=== PATIENT | female | born 1985 | race African-American/Black ===

== ENCOUNTER 2017-03-21 13:28 | Inpatient (IN) | payer OTHER ==
[~2017-03-21] VITALS: Ht 175.3 cm; Wt 115.2 kg
[~2017-03-21 13:28] MED LIST: ACET-9533 PO; ALBU0.0939 IH; ATI.5 PO; Ascorbic Acid GT; DULCOLAX PO; ELA25 PO; FERR-193 PO; GABA100C PO; SILD20TA PO; TOR30I IVP; ZOLP5TAB1 PO
[2017-03-21 13:35] VITALS: BP 109/78
--- NOTE | 2017-03-21 13:40 | NUR ---
PATIENT PRESENTS TO ED WITH 31 YO FEMALE BIB EMS FROM HOME FOR NAUSEA AND VOMITING AND DIZZINESS FOR THREE DAYS. AWAKE AND ALERT ON ARRIVAL. DENIES N/V/D; SKIN IS PINK/WARM/DRY; AAOX4 WITH EVEN AND STEADY GAIT; LUNGS CLEAR BL; HR EVEN AND REGULAR; PT DENIES ANY FEVER, CP, SOB, OR COUGH AT THIS TIME; PATIENT STATES PAIN OF 6/10 AT THIS TIME; VSS; PATIENT POSITIONED FOR COMFORT; HOB ELEVATED; BEDRAILS UP X2; BED DOWN. ER MD MADE AWARE OF PT STATUS.
[2017-03-21] MEDS ORDERED: ONDANSETRON 4 MG/2 ML VIAL IVP ONE (13:50)
[2017-03-21] MEDS ORDERED: KETOROLAC 30 MG/ML VIAL IVP ONE (13:50)
[2017-03-21] MEDS ORDERED: NACL 0.9% 1,000 ML IV ONE (13:50)
--- NOTE | 2017-03-21 14:22 | NUR ---
Patient transferred to bed 6 for further care. RN evaluating patient at bedside.
[2017-03-21 14:58] LABS: EOSINOPHILS # (AUTO) 0.1 K/uL (0-0.4)
[2017-03-21 15:18] LABS: MEAN CORPUSCULAR HEMOGLOBIN 25 pg (27-31); MEAN CORPUSCULAR HGB CONC 31 g/dL (33-37)
[2017-03-21 15:28] LABS: ALBUMIN 4.4 g/dL (3.4-5.0); ANION GAP 26.3 (8-16); CARBON DIOXIDE 18.2 mmol/L (21-32); CREATININE 1.6 mg/dL (0.6-1.3); POTASSIUM 4.5 mmol/L (3.5-5.1); THYROID STIMULATING HORMONE 0.3 uIU/mL (0.34-3.74); TOTAL BILIRUBIN 0.6 mg/dL (0.0-1.0)
[2017-03-21] MEDS ORDERED: INSULIN HUMAN REGULAR 100 UNITS/ML 10 ML VIAL IVP ONE (15:35)
[2017-03-21] MEDS ORDERED: INSULIN HUMAN REGULAR 100 UNITS in NACL 0.9% 100 ML IV ONE (15:40)
[2017-03-21 15:41] LABS: HEMATOCRIT 56.3 % (36-48); HEMOGLOBIN 17.2 g/dL (12.0-16.0); LYMPHOCYTES % (AUTO) 20.5 % (20.5-51.1); MEAN CORPUSCULAR VOLUME 81 fL (80-94); NEUTROPHILS % (AUTO) 73.6 % (42.2-75.2); PLATELET COUNT (AUTO) 234 K/uL (140-450); RED BLOOD CELL COUNT(AUTO) 6.99 MIL/uL (4.20-5.40); RED CELL DISTRIBUTION WIDTH 13.6 % (11.6-13.7); WHITE BLOOD COUNT (AUTO) 12.2 K/uL (4.8-10.8)
[2017-03-21 15:42] LABS: BASOPHILS # (AUTO) 0.2 K/uL (0.00-0.22); BASOPHILS % (AUTO) 1.6 % (0.0-2.0); EOSINOPHILS % (AUTO) 1.1 % (0.0-4.0); LYMPHOCYTES # (AUTO) 2.5 K/uL (2.5-16.5); MONOCYTES # (AUTO) 0.4 K/uL (0.8-1.0); MONOCYTES % (AUTO) 3.2 % (1.7-9.3)
[2017-03-21 15:47] LABS: APPEARANCE,URINE HAZY (CLEAR); BILIRUBIN,URINE NEGATIVE (NEGATIVE); BLOOD, URINE 2+ (NEGATIVE); COLOR,URINE YELLOW (YELLOW); NITRITE, URINE POSITIVE (NEGATIVE); PH,URINE 5.5 (5.0-9.0); UGLUCOSE 3+ (NEGATIVE)
[2017-03-21 16:08] LABS: RBC,URINE 3-10 (FEW) /HPF (0-5)
[2017-03-21] MEDS ORDERED: LEVOFLOXACIN 750 MG/D5W PREMIX 150 ML IV ONE (16:10)
[2017-03-21 16:11] LABS: LEUKOCYTE ESTERASE ,URINE 2+ (NEGATIVE); WBC,URINE 16-25 (MOD) /HPF (0-5)
[2017-03-21 16:18] LABS: YEAST,URINE Few /HPF (None Seen)
[2017-03-21] MEDS ORDERED: INSULIN HUMAN REGULAR 100 UNITS in NACL 0.9% 100 ML IV SCH (16:55)
[2017-03-21] MEDS: BLOOD GLUCOSE MONITORING 1 DEV DEV FS SCH ×8 (16:55→23:00)
[2017-03-21] MEDS ORDERED: DOCUSATE SODIUM 100 MG GELCAP PO PRN (16:55)
[2017-03-21] MEDS ORDERED: DEXTROSE 50% 50 ML SYR IVP PRN (16:55)
[2017-03-21] MEDS ORDERED: ACETAMINOPHEN 325 MG TAB PO PRN (16:55)
[2017-03-21] MEDS ORDERED: HYDROcodone/APAP 7.5/325 MG 1 TAB PO PRN (16:55)
[2017-03-21] MEDS ORDERED: ONDANSETRON 8 MG in NACL 0.9% 50 ML IV PRN (16:55)
[2017-03-21] MEDS ORDERED: MORPHINE SULFATE 4 MG/ML SYR IVP ONE (17:00)
[2017-03-21] MEDS ORDERED: LACTOBACILLUS RHAMNOSUS GG 1 EACH CAP PO SCH (17:00)
[2017-03-21] MEDS ORDERED: LORazepam 0.5 MG TAB PO PRN (17:35)
[2017-03-21] MEDS ORDERED: ALBUTEROL SULFATE/IPRATROPIU 3 ML SOL IH PRN (17:35)
[2017-03-21] MEDS ORDERED: KETOROLAC 30 MG/ML VIAL IVP PRN (17:35)
[2017-03-21] MEDS: INSULIN HUMAN REGULAR 100 UNITS in NACL 0.9% 100 ML IV SCH ×2 (17:38→18:17)
--- NOTE | 2017-03-21 17:45 | NUR ---
Patient will be admitted to care of DR. MERCEDES. Admited to ICU. Will go to BED 2. Report to SLICK ALMEIDA.
[2017-03-21] MEDS ORDERED: HYDROmorphone 1 MG/ML AMP IVP PRN (17:55)
[2017-03-21] MEDS ORDERED: LORazepam 2 MG/ML VIAL IVP PRN (17:55)
--- NOTE | 2017-03-21 18:00 | NUR ---
RECEIVED PT FROM ER. PT AMBULATORY WITH ASSISTANCE. PT IS AAOX4, HERE FOR DKA WITH INITIAL BG AT 794. PT HAS LEFT HAND 20G IV RUNNING IVF AND INSULIN DRIP. IV IS PATENT AND INTACT. PT ON ROOM AIR, SATTING AT 95%, ON COMPONENT OVERHAUL OPERATOR RUNNING 120 BPM. PT IS NPO AT THIS TIME. SKIN IS WARM, DRY, INTACT. PT ABLE TO TURN SELF. MRSA SWAB DONE. SAFETY MEASURES CHECKED, CALL LIGHT LEFT AT BEDSIDE. WILL CONTINUE TO MONITOR.
--- NOTE | 2017-03-21 18:10 | NUR ---
BG 567. CALLED RESIDENT NUMBER; PER MD, KEEP INSULIN DRIP AT 5UNITS/HR. WILL FOLLOW UP WITH ORDERS.
[2017-03-21] MEDS: NACL 0.9% 1,000 ML IV SCH ×2 (18:22→23:50)
[2017-03-21 19:15] LABS: PROTHROMBIN TIME 10.6 secs (10.8-13.4)
[2017-03-21 19:16] LABS: BARBITURATE, URINE NEG. ng/ml (NEG <=200); BENZODIAZEPINE, URINE NEG. ng/mL (NEG <=200); CANNABINOID, URINE NEG. ng/mL (NEG <=50); COCAINE, URINE NEG. ng/mL (NEG <=300); OPIATE, URINE NEG. ng/mL (NEG <=2000); PHENCYCLIDINE SCREEN,URINE NEG. ng/mL (NEG <=25)
--- NOTE | 2017-03-21 19:30 | NUR ---
DR ALICEA AT BEDSIDE EXPLAINING CENTRAL LINE TO PATIENT. PT VERBALIZED UNDERSTANDING. INFORMED CONSENT SIGNED BY PT WITH AND JUAN PABLO MORGAN WITNESS.
[2017-03-21 19:31] LABS: CHOL/HDL RATIO 6.3 (1-4.5); MAGNESIUM 2.9 mg/dL (1.8-2.4); PHOSPHORUS 4.6 mg/dL (2.5-4.9); THYROID STIMULATING HORMONE 0.29 uIU/mL (0.34-3.74)
[2017-03-21 19:52] VITALS: BP 132/86
--- NOTE | 2017-03-21 20:00 | NUR ---
REPORT GIVEN TO JUAN PABLO HANEY.
--- NOTE | 2017-03-21 20:13 | NUR ---
ADMINISTERED ATIVAN AND DILAUDID PER MD ORDER BEFORE CENTRAL LINE INSERTION WITH EDUCATION. PT VERBALIZED UNDERSTANDING. WILL CONTINUE TO MONITOR.
--- NOTE | 2017-03-21 20:28 | NUR ---
RECEIVED CRITICAL RADIOLOGY.
--- NOTE | 2017-03-21 20:32 | NUR ---
NOTIFIED DR CORTEZ OF CRITICAL RADIOLOGY. PER , PLEASE DRAW NEXT VBG FROM CENTRAL LINE. WILL FOLLOW UP.
[2017-03-21] MEDS ORDERED: METOPROLOL 5 MG/5 ML VIAL IV ONE (20:45)
[2017-03-21] MEDS: AMITRIPTYLINE 25 MG TAB PO SCH (21:00)
[2017-03-21] MEDS: SILDENAFIL 20 MG TAB PO SCH (21:35)
[2017-03-21] MEDS ORDERED: FLUCONAZOLE 100 MG TAB PO SCH (21:40)
[2017-03-21 22:00] VITALS: BP 107/38
[2017-03-21] MEDS ORDERED: LIDOCAINE 1% 50 ML ONE (22:43)
--- NOTE | 2017-03-21 23:15 | NUR ---
DR. CORTEZ (RESIDENT) JUST FINISHED FIXING THE CENTRAL LINE, TRIED TO FLUSH 3 PORTS, ONLY THE BROWN PORT DOES NOT HAVE BLOOD RETURN, PER DR. CORTEZ , OK TO USE THE CENTRAL LINE ON J.
[2017-03-21] MEDS: MORPHINE SULFATE 2 MG/ML SYR IVP PRN (23:51)
[2017-03-21] MEDS: ZOLPIDEM 5 MG TAB PO SCH (23:51)
[2017-03-22] VITALS (8 sets, daily range): BP systolic 91–135; BP diastolic 53–90
[2017-03-22] MEDS ORDERED: LIDOCAINE 1% 500 MG/50 ML VIAL INJ SCH (00:30)
[2017-03-22] MEDS: BLOOD GLUCOSE MONITORING 1 DEV DEV FS SCH ×12 (00:55→20:45)
[2017-03-22 01:23] LABS: ANION GAP 5.4 (8-16); CARBON DIOXIDE 23.4 mmol/L (21-32); CREATININE 1.2 mg/dL (0.6-1.3)
[2017-03-22 01:27] LABS: MAGNESIUM 2.1 mg/dL (1.8-2.4); PHOSPHORUS 3.6 mg/dL (2.5-4.9); POTASSIUM 2.8 mmol/L (3.5-5.1)
[2017-03-22] MEDS ORDERED: KCL 20 MEQ/WATER INJ PREMIX 200 ML IV ONE ×2 (01:35→02:34)
[2017-03-22] MEDS ORDERED: KCL 20 MEQ/WATER INJ PREMIX 100 ML IV ONE (01:35)
--- NOTE | 2017-03-22 01:35 | NUR ---
DR. CORTEZ INFORMED ALSO THAT PATIENT'S HR IS STILL ON 125, BP 141/94. STATED THAT HE'S GOING TO PUT IN ORDERS.
--- NOTE | 2017-03-22 01:35 | NUR ---
DR. CORTEZ INFORMED ABOUT K+ LEVEL 2.8, NEW ORDERS GIVEN. INFORMED TRACTOR DRILL OPERATORJUAN PABLO RICE.
[2017-03-22] MEDS: MORPHINE SULFATE 2 MG/ML SYR IVP PRN ×2 (03:17→07:42)
[2017-03-22] MEDS: NACL 0.9% 1,000 ML IV SCH ×4 (05:12→20:46)
[2017-03-22 05:25] LABS: HEMATOCRIT 47.1 % (36-48); HEMOGLOBIN 14.9 g/dL (12.0-16.0); MEAN CORPUSCULAR HEMOGLOBIN 25 pg (27-31); MEAN CORPUSCULAR HGB CONC 32 g/dL (33-37); MEAN CORPUSCULAR VOLUME 81 fL (80-94); RED BLOOD CELL COUNT(AUTO) 5.85 MIL/uL (4.20-5.40); RED CELL DISTRIBUTION WIDTH 13.5 % (11.6-13.7); WHITE BLOOD COUNT (AUTO) 18.2 K/uL (4.8-10.8)
[2017-03-22 05:52] LABS: ANION GAP 15.1 (8-16); CARBON DIOXIDE 22.3 mmol/L (21-32); CREATININE 1.2 mg/dL (0.6-1.3); POTASSIUM 4.4 mmol/L (3.5-5.1)
[2017-03-22 05:53] LABS: MAGNESIUM 1.9 mg/dL (1.8-2.4); PHOSPHORUS 3.2 mg/dL (2.5-4.9)
[2017-03-22 06:07] LABS: PLATELET COUNT (AUTO) 127 K/uL (140-450)
[2017-03-22 06:09] LABS: EOSINOPHILS % (MANUAL) 2 % (0-4); LYMPHOCYTES % (MANUAL) 6 % (20-46); MONOCYTES % (MANUAL) 8 % (5-12)
--- NOTE | 2017-03-22 07:30 | NUR ---
RECEIVED REPORT FROM JUAN PABLO VEGA. PT SEEN AT BEDSIDE. AAOX4, ON BURNING SUPERVISOR, HR AT [address] LEFT IJ TLC IN PLACE; BLOOD RETURN ONLY IN ONE PORT. RUNNING IVF AND INSULIN DRIP. PT ON RM AIR, NO S/S SOB; PT C/O 10/10 GENERALIZED PAIN. SAFETY MEASURES CHECKED, CALL LIGHT LEFT AT BEDSIDE. ASSISTED PT WITH TURNING. WILL CONTINUE TO MONITOR.
--- NOTE | 2017-03-22 07:42 | NUR ---
PAIN MEDICATION ADMINISTERED FOR 10/10 GENERALIZED PAIN.
--- NOTE | 2017-03-22 08:00 | NUR ---
DR RICHARDS AND RESIDENTS AT BEDSIDE TALKING WITH PATIENT. UPDATED MD ON PATIENT CONDITION. WILL FOLLOW UP ON ORDERS.
[2017-03-22] MEDS ORDERED: INSULIN HUMAN REGULAR 100 UNITS in NACL 0.9% 100 ML IV SCH (08:20)
[2017-03-22] MEDS ORDERED: ONDANSETRON 8 MG in NACL 0.9% 50 ML IV PRN (08:20)
[2017-03-22] MEDS ORDERED: ACETAMINOPHEN 325 MG TAB PO PRN (08:20)
[2017-03-22] MEDS ORDERED: DEXTROSE 50% 50 ML SYR IVP PRN (08:20)
[2017-03-22 08:25] LABS: MAGNESIUM 1.6 mg/dL (1.8-2.4); PHOSPHORUS 2.4 mg/dL (2.5-4.9)
[2017-03-22 08:47] LABS: ANION GAP 15.4 (8-16); CARBON DIOXIDE 21.9 mmol/L (21-32); CREATININE 1.3 mg/dL (0.6-1.3); POTASSIUM 4.3 mmol/L (3.5-5.1)
[2017-03-22] MEDS: FERROUS SULFATE 325 MG TABEC PO SCH (08:58)
[2017-03-22] MEDS: ATORVASTATIN 20 MG TAB PO SCH (08:59)
[2017-03-22] MEDS: ASCORBIC ACID 500 MG TAB PO SCH (08:59)
[2017-03-22] MEDS: SILDENAFIL 20 MG TAB PO SCH ×2 (08:59→20:34)
[2017-03-22] MEDS: GABAPENTIN 100 MG CAP PO SCH ×3 (08:59→16:52)
[2017-03-22] MEDS ORDERED: LEVOFLOXACIN 750 MG/D5W PREMIX 150 ML IV SCH (09:00)
[2017-03-22] MEDS: DOCUSATE SODIUM 100 MG GELCAP PO SCH ×2 (09:01→20:34)
[2017-03-22] MEDS: LEVOFLOXACIN 750 MG/D5W PREMIX 150 ML IV SCH (09:02)
[2017-03-22] MEDS: INSULIN LISPRO SLIDING SCALE 100 UNITS/ML VIAL SUBQ PRN ×4 (09:19→20:44)
--- NOTE | 2017-03-22 09:30 | NUR ---
MEDICATIONS ADMINISTERED WITH EDUCATION. PT VERBALIZED UNDERSTANDING. WILL CONTINUE TO MONITOR.
--- NOTE | 2017-03-22 10:17 | NUR ---
INSULIN DRIP STOPPED PER MD ORDERS.
[2017-03-22] MEDS ORDERED: MAG SULF 2000 MG/WATER PREMIX 50 ML IV SCH (10:28)
[2017-03-22] MEDS ORDERED: SODIUM PHOS / POTASSIUM PHOS 1 PKT PDR PO SCH (10:28)
[2017-03-22] MEDS: HYDROcodone/APAP 10/325 MG 1 TAB TAB PO PRN ×2 (11:09→20:34)
--- NOTE | 2017-03-22 11:09 | NUR ---
PAIN MEDICATION ADMINISTERED FOR 10/10 GENERALIZED PAIN. WILL CONTINUE TO MONITOR.
[2017-03-22] MEDS ORDERED: PROPRANOLOL 20 MG TAB PO SCH (11:17)
--- NOTE | 2017-03-22 11:17 | NUR ---
PER DR LYONS OK TO HOLD 1117 INDERAL FOR BP 100/69.
[2017-03-22] MEDS ORDERED: BLOOD GLUCOSE MONITORING 1 DEV DEV FS SCH (11:30)
[2017-03-22] MEDS ORDERED: PROBIOTIC SCREEN 1 EA MISC MC PRN (12:50)
[2017-03-22] MEDS ORDERED: INSULIN DETEMIR 100 UNITS/ML 10 ML VIAL SUBQ SCH ×3 (13:00→21:00)
--- NOTE | 2017-03-22 13:00 | NUR ---
PT SLEEPING AT THIS TIME. WILL CONTINUE TO MONITOR.
[2017-03-22] MEDS: PROPRANOLOL 20 MG TAB PO SCH ×2 (13:34→16:22)
--- NOTE | 2017-03-22 15:10 | NUR ---
PT TALKING TO FRIEND ON PHONE. NO NEEDS AT THIS TIME. WILL CONTINUE TO MONITOR.
--- NOTE | 2017-03-22 15:13 | NUR ---
DR. KELLY AND MAURICE AT NURSING STATION. UPDATED MD ON PATIENT CONDITION. WILL FOLLOW UP WITH ORDERS.
[2017-03-22] MEDS: LACTOBACILLUS RHAMNOSUS GG 1 EACH CAP PO SCH (16:52)
--- NOTE | 2017-03-22 16:53 | NUR ---
ACCUCHECK DONE. BG 343. COVERED WITH ORDERED INSULIN. PT REFUSED NEURONTIN AND CULTURELLE AT THIS TIME. EXPLAINED RISKS ASSOCIATED WITH NOT TAKING MEDICATION. PT VERBALIZED UNDERSTANDING. WILL CONTINUE TO MONITOR.
--- NOTE | 2017-03-22 17:00 | NUR ---
PROVIDED DINNER TRAY TO PATIENT. ONLY ATE 25% OF MEAL.
--- NOTE | 2017-03-22 18:26 | NUR ---
RECEIVED REPORT FROM JUAN PABLO LONDONO.
--- NOTE | 2017-03-22 18:26 | NUR ---
REPORT GIVEN TO MIMA TORRES RN.
--- NOTE | 2017-03-22 18:35 | NUR ---
PUT PT ON LEADS WITH ON PORTABLE TRANSPORT MONITOR. PT BELONGINGS WITH PT ON BED. PT TRANSFERRED VIA BED TO [facility].
--- NOTE | 2017-03-22 19:10 | NUR ---
RECEIVED REPORT FROM AM NURSE. PT AOX4, ABLE TO MAKE NEEDS KNOWN. WITH RESPIRATIONS CLEAR AND UNLABORED. NO COMPLAINTS OF PAIN AT THIS TIME. WITH A LEFT IJ TRIPLE LUMEN, WITH THE MIDDLE LUMEN WITH NO BLOOD RETURN. WITH A LEFT HAND IV SL, PATENT AND INTACT. WITH SCDS IN PLACE. INITIAL ASSESSMENT DONE. RE-ORIENTED PATIENT TO THE UNIT, VERBALIZED UNDERSTANDING. SCD'S IN PLACE. WILL CONTINUE TO MONITOR. ALL NEEDS ATTENDED. CALL LIGHT WITHIN REACH. SAFETY CHECKS IN PLACE.
[2017-03-22] MEDS: AMITRIPTYLINE 25 MG TAB PO SCH (20:34)
[2017-03-22] MEDS: ZOLPIDEM 5 MG TAB PO SCH (20:34)
--- NOTE | 2017-03-22 20:46 | NUR ---
DUE MEDS GIVEN, WELL TOLERATED BY PATIENT. WILL CONTINUE TO MONITOR. ALL NEEDS ATTENDED. CALL LIGHT WITHIN REACH. SAFETY CHECKS IN PLACE.
--- NOTE | 2017-03-22 21:00 | NUR ---
REPOSITIONED PATIENT WITH AN ASSISTANCE OF THE MANUGRAPHER. WILL CONTINUE TO MONITOR FOR ANY CHANGES.
--- NOTE | 2017-03-22 22:30 | NUR ---
MADE ROUNDS. PATIENT ASLEEP. NO S/S OF DISTRESS. WILL CONTINUE TO MONITOR FOR ANY CHANGES.
[2017-03-23] VITALS: BP 96/53
--- NOTE | 2017-03-23 | NUR ---
VITAL SIGNS STABLE. NO S/S OF DISTRESS. NO COMPLAINTS OF PAIN. PT WANTED JUICE, EDUCATED TO THE PATIENT THAT SHE CANT HAVE ANY JUICE BECAUSE IT WILL CAUSE HER BLOOD SUGAR TO INCREASE, VERBALIZED UNDERSTANDING. WILL CONTINUE TO MONITOR. ALL NEEDS ATTENDED. CALL LIGHT WITHIN REACH. SAFETY CHECKS IN PLACE.
--- NOTE | 2017-03-23 03:00 | NUR ---
REPOSITIONED PATIENT WITH AN ASSIST WITH THE RECRUITING ASSISTANT. COMPLAINED OF PAIN BUT REFUSED PAIN MEDICATION. WILL CONTINUE TO MONITOR.
[2017-03-23 04:00] VITALS: BP 125/68
--- NOTE | 2017-03-23 04:00 | NUR ---
VITALS STABLE. NO S/S OF DISTRESS. NO COMPLAINTS OF PAIN. WILL CONTINUE TO MONITOR.
[2017-03-23] MEDS: NACL 0.9% 1,000 ML IV SCH ×2 (04:20→16:24)
[2017-03-23] MEDS: HYDROcodone/APAP 10/325 MG 1 TAB TAB PO PRN ×2 (04:59→20:23)
[2017-03-23] MEDS: INSULIN LISPRO SLIDING SCALE 100 UNITS/ML VIAL SUBQ PRN ×4 (06:27→20:30)
[2017-03-23] MEDS: BLOOD GLUCOSE MONITORING 1 DEV DEV FS SCH ×4 (06:37→20:32)
--- NOTE | 2017-03-23 07:17 | NUR ---
ENDORSED TO MORNING SHIFT FOR CONTINUITY OF CARE, IN STABLE CONDITION.
--- NOTE | 2017-03-23 07:19 | NUR ---
RECEIVED HANDOFF REPORT FROM PM RN. PATIENT A&OX4. PATIENT STATES 8/10 PAIN. WILL MEDICATE ORDERED. L IJ TRIPLE LUMEN PATENT AN INTACT. DRESSING WITH SCANT DRAINAGE. NO SIGNS AND SYMPTOMS OF ACUTE DISTRESS NOTED. CALL LIGHT WITHIN REACH. WILL CONTINUE TO MONITOR.
[2017-03-23 08:00] VITALS: BP 91/48
[2017-03-23] MEDS: LEVOFLOXACIN 750 MG/D5W PREMIX 150 ML IV SCH (08:42)
[2017-03-23] MEDS: DOCUSATE SODIUM 100 MG GELCAP PO SCH ×2 (08:42→20:24)
[2017-03-23] MEDS: PIOGLITAZONE 15 MG TAB PO SCH (08:42)
[2017-03-23] MEDS: LACTOBACILLUS RHAMNOSUS GG 1 EACH CAP PO SCH ×2 (08:43→16:07)
[2017-03-23] MEDS: ATORVASTATIN 20 MG TAB PO SCH (08:43)
[2017-03-23] MEDS: ASCORBIC ACID 500 MG TAB PO SCH (08:44)
[2017-03-23] MEDS: GABAPENTIN 100 MG CAP PO SCH ×3 (08:44→16:07)
[2017-03-23] MEDS: FERROUS SULFATE 325 MG TABEC PO SCH (08:44)
[2017-03-23] MEDS: SILDENAFIL 20 MG TAB PO SCH ×2 (08:55→20:24)
[2017-03-23] MEDS: PROPRANOLOL 20 MG TAB PO SCH ×2 (08:55→20:14)
[2017-03-23] MEDS ORDERED: PROPRANOLOL 20 MG TAB PO SCH (09:00)
[2017-03-23 09:06] LABS: HEMATOCRIT 43.9 % (36-48); HEMOGLOBIN 13.9 g/dL (12.0-16.0); MEAN CORPUSCULAR HEMOGLOBIN 25 pg (27-31); MEAN CORPUSCULAR HGB CONC 32 g/dL (33-37); MEAN CORPUSCULAR VOLUME 81 fL (80-94); PLATELET COUNT (AUTO) 155 K/uL (140-450); RED BLOOD CELL COUNT(AUTO) 5.45 MIL/uL (4.20-5.40); RED CELL DISTRIBUTION WIDTH 13.5 % (11.6-13.7); WHITE BLOOD COUNT (AUTO) 7.7 K/uL (4.8-10.8)
--- NOTE | 2017-03-23 09:08 | NUR ---
AM MEDS GIVEN QWITH EDUCATION. PATIENT VERBALIZED UNDERSTANDING. DR. RICHARDS AWARE OF LEFT IJ TRIPLE LUMEN LEAKING. LEFT HAND 24 GAUGE PATENT AND INTACT. DR. RICHARDS MADE AWARE PATIENT STATES PAIN. 02/19 AFTER NORCO GIVEN. CALL LIGHT WITHIN REACH. WILL CONTINUE TO MONITOR.
--- NOTE | 2017-03-23 09:15 | NUR ---
PATIENT HAS BEEN SCREENED AND CATEGORIZED HIGH NUTRITION RISK. PATIENT WILL BE SEEN WITHIN 1-2 DAYS OF ADMISSION. 03/22/17-03/23/[address]
[2017-03-23 09:20] LABS: ANION GAP 14.3 (8-16); CARBON DIOXIDE 22.7 mmol/L (21-32); CREATININE 1.3 mg/dL (0.6-1.3)
[2017-03-23 09:25] LABS: MAGNESIUM 1.8 mg/dL (1.8-2.4); PHOSPHORUS 2.1 mg/dL (2.5-4.9)
[2017-03-23 09:33] LABS: LYMPHOCYTES % (MANUAL) 36 % (20-46); MONOCYTES % (MANUAL) 10 % (5-12)
--- NOTE | 2017-03-23 10:08 | NUR ---
CM NOTE INITIAL REVIEW FAXED TO EN [phone] PARVIN JAS EXT [phone]
[2017-03-23 12:00] VITALS: BP 101/59
[2017-03-23] MEDS: INSULIN DETEMIR 100 UNITS/ML 10 ML VIAL SUBQ SCH (12:18)
--- NOTE | 2017-03-23 12:22 | NUR ---
PATIENT STATES 10/10 PAIN. PATIENT REFUSES GABAPENTIN AND NORCO AT THIS TIME. PATIENT STATES IT WONT HELP HER. AWARE.
--- NOTE | 2017-03-23 13:34 | NUR ---
03/23/17 RD INITIAL ASSESSMENT COMPLETED PLEASE REFER TO NUTRITION ASSESSMENT UNDER CARE ACTIVITY FOR ESTIMATED NUTRITIONAL NEEDS. 1. CONTINUE 60G CONSISTENT CARBOHYDRATE DIET 2. ENCOURAGE INCREASED PO INTAKE TO TOLERANCE 3. PROVIDE NUTRITION THERAPY EDUCATION NEEDED 4. RD TO FOLLOW-UP HIGH RISK, 2-[address]
--- NOTE | 2017-03-23 15:15 | NUR ---
PATIENT SLEEPING IN BED. NO SIGNS OR SYMPTOMS OF ACUTE DISTRESS NOTED. CALL LIGHT WITHIN REACH. WILL CONTINUE TO MONITOR.
[2017-03-23] MEDS ORDERED: ONDANSETRON 4 MG/2 ML VIAL IVP PRN (15:35)
[2017-03-23 16:00] VITALS: BP 103/51
--- NOTE | 2017-03-23 16:00 | NUR ---
PATIENT STATES NAUSEA. WILL MEDICATE ORDERED. NO SIGNS OR SYMPTOMS OF ACUTE DISTRESS NOTED. CALL LIGHT WITHIN REACH. WILL CONTINUE TO MONITOR.
--- NOTE | 2017-03-23 17:46 | NUR ---
R IJ DISCONTINUED TIP INTACT. NO S/S OF ACUTE DISTRESS. PRESSURE APPLIED TO SITE. WILL CONTINUE TO MONITOR.
--- NOTE | 2017-03-23 19:13 | NUR ---
ENDORSED PLAN OF CARE TO PM RN. PATIENT STABLE. SAFETY MEASURES ENSURED. CALL LIGHT WITHIN REACH.
--- NOTE | 2017-03-23 19:14 | NUR ---
RECEIVED REPORT FROM AM NURSE. PT IS AOX4, ABLE TO MAKE NEEDS KNOWN. STATES THAT HER PAIN IS 10/10, WILL MEDICATE ORDERED. NO S/S OF DISTRESS. WITH AN IV TO THE LEFT HAND, INTACT AND PATENT. SKIN IS INTACT. INITIAL ASSESSMENT DONE. REORIENTED PT TO THE UNIT, VERBALIZED UNDERSTANDING. WILL CONTINUE TO MONITOR. ALL NEEDS ATTENDED. CALL LIGHT WITHIN REACH. SAFETY CHECKS IN PLACE.
--- NOTE | 2017-03-23 19:45 | NUR ---
RT PUT AN OXYMIZER OF 4 L DUE TO DE-SATURATION AND SHORTNESS OF BREATH, WELL TOLERATED BY PT.
[2017-03-23 20:00] VITALS: BP 104/57
[2017-03-23] MEDS: ZOLPIDEM 5 MG TAB PO SCH (20:23)
[2017-03-23] MEDS: AMITRIPTYLINE 25 MG TAB PO SCH (20:24)
--- NOTE | 2017-03-23 20:45 | NUR ---
DUE MEDS GIVEN, WELL TOLERATED BY PATIENT. HELD THE PROPANOLOL DUE TO THE BLOOD PRESSURE BEING LOW. WILL CONTINUE TO MONITOR. ALL NEEDS ATTENDED. CALL LIGHT WITHIN REACH. SAFETY CHECKS IN PLACE.
--- NOTE | 2017-03-23 22:00 | NUR ---
RESTARTED AN IV TO THE RIGHT HAND 24 G, FLUSHED WITH NS, INTACT AND PATENT.
[2017-03-24] VITALS: BP 111/66
--- NOTE | 2017-03-24 | NUR ---
VITALS STABLE. NO S/S OF DISTRESS. NO COMPLAINTS OF PAIN. WILL CONTINUE TO MONITOR FOR ANY CHANGES.
--- NOTE | 2017-03-24 01:54 | NUR ---
MADE ROUNDS. PATIENT ASLEEP. NO S/S OF DISTRESS. CALL LIGHT WITHIN REACH. SAFETY CHECKS IN PLACE. WILL CONTINUE TO MONITOR FOR ANY CHANGES.
[2017-03-24 04:00] VITALS: BP 105/77
--- NOTE | 2017-03-24 04:00 | NUR ---
VITAL SIGNS STABLE. NO S/S OF DISTRESS. NO COMPLAINTS OF PAIN. WILL CONTINUE TO MONITOR FOR ANY CHANGES. CALL LIGHT WITHIN REACH.
[2017-03-24 06:32] LABS: HEMATOCRIT 43.2 % (36-48); HEMOGLOBIN 13.3 g/dL (12.0-16.0); MEAN CORPUSCULAR HEMOGLOBIN 25 pg (27-31); MEAN CORPUSCULAR HGB CONC 31 g/dL (33-37); MEAN CORPUSCULAR VOLUME 80 fL (80-94); PLATELET COUNT (AUTO) 139 K/uL (140-450); RED BLOOD CELL COUNT(AUTO) 5.38 MIL/uL (4.20-5.40); RED CELL DISTRIBUTION WIDTH 13.9 % (11.6-13.7); WHITE BLOOD COUNT (AUTO) 7.1 K/uL (4.8-10.8)
[2017-03-24] MEDS: BLOOD GLUCOSE MONITORING 1 DEV DEV FS SCH ×2 (06:39→11:34)
[2017-03-24 06:41] LABS: T4 (THYROXINE) 9.9 ug/dL (4.5-12.0)
[2017-03-24] MEDS: INSULIN LISPRO SLIDING SCALE 100 UNITS/ML VIAL SUBQ PRN ×2 (06:42→12:16)
[2017-03-24 07:00] LABS: ANION GAP 15.7 (8-16); CARBON DIOXIDE 22.9 mmol/L (21-32); CREATININE 1.1 mg/dL (0.6-1.3); POTASSIUM 3.6 mmol/L (3.5-5.1)
[2017-03-24 07:10] LABS: MAGNESIUM 1.5 mg/dL (1.8-2.4); PHOSPHORUS 3.1 mg/dL (2.5-4.9)
--- NOTE | 2017-03-24 07:11 | NUR ---
ENDORSED TO AM SHIFT FOR CONTINUITY OF CARE, IN STABLE CONDITION. NO S/S OF DISTRESS.
--- NOTE | 2017-03-24 07:13 | NUR ---
RECEIVED REPORT FROM NIGHT RN AT BEDSIDE. PT SLEEPING IN BED. AAOX4. NO S/S OF ACUTE DISTRESS. IV SITE PATENT AND INTACT. ON OXIMIZER 4L. PT DENIES SOB AT THIS TIME BUT REFUSES TO HAVE OXIMIZER OFF. PLAN OF CARE DISCUSSED WITH PT. PT VERBALIZED UNDERSTANDING. CALL LIGHT WITHIN REACH. SAFETY MEASURES ENSURED. WILL CONTINUE TO MONITOR.
[2017-03-24 07:52] VITALS: BP 105/56
[2017-03-24 08:00] LABS: EOSINOPHILS % (MANUAL) 2 % (0-4); LYMPHOCYTES % (MANUAL) 46 % (20-46); MONOCYTES % (MANUAL) 6 % (5-12)
[2017-03-24] MEDS: DOCUSATE SODIUM 100 MG GELCAP PO SCH (08:45)
[2017-03-24] MEDS: LACTOBACILLUS RHAMNOSUS GG 1 EACH CAP PO SCH (08:45)
[2017-03-24] MEDS: LEVOFLOXACIN 750 MG/D5W PREMIX 150 ML IV SCH (08:45)
[2017-03-24] MEDS: ATORVASTATIN 20 MG TAB PO SCH (08:46)
[2017-03-24] MEDS: ASCORBIC ACID 500 MG TAB PO SCH (08:46)
[2017-03-24] MEDS: FERROUS SULFATE 325 MG TABEC PO SCH (08:46)
[2017-03-24] MEDS: SILDENAFIL 20 MG TAB PO SCH (08:46)
[2017-03-24] MEDS: PIOGLITAZONE 15 MG TAB PO SCH (08:46)
[2017-03-24] MEDS: GABAPENTIN 100 MG CAP PO SCH ×2 (08:46→12:10)
--- NOTE | 2017-03-24 08:47 | NUR ---
CM NOTE CONCURRENT REVIEW FAXED TO EN [phone], PH [phone] CM JAS EXT [phone] DIABETIC TEACHING GIVEN BY PATIENT'S NURSE. PATIENT WILL FOLLOW UP WITH PCP.
--- NOTE | 2017-03-24 08:58 | NUR ---
AM MEDICATIONS GIVEN WITH EDUCATION. PT TOLERATED WELL. PT VERBALIZED UNDERSTANDING. WILL CONTINUE TO MONITOR.
[2017-03-24] MEDS: PROPRANOLOL 20 MG TAB PO SCH (09:00)
[2017-03-24] MEDS ORDERED: MORPHINE TAB ER 15 MG TABER PO SCH (09:00)
[2017-03-24] MEDS ORDERED: PIOG15TA13 PO (11:05)
[2017-03-24] MEDS ORDERED: INSU-1331 SQ (11:05)
[2017-03-24] MEDS ORDERED: GABA100C PO (11:05)
[2017-03-24] MEDS ORDERED: BLOO1KIT MC (11:11)
[2017-03-24] MEDS ORDERED: [UNRECOGNIZED DRUG - CODE] MC (11:11)
[2017-03-24] MEDS ORDERED: BLOO-571 MC (11:11)
[2017-03-24] MEDS ORDERED: MAG SULF 2000 MG/WATER PREMIX 50 ML IV SCH (11:13)
--- NOTE | 2017-03-24 11:46 | NUR ---
PT SLEEPING IN BED. NO S/S OF ACUTE DISTRESS. CALL LIGHT WITHIN REACH. SAFETY MEASURES ENSURED. WILL CONTINUE TO MONITOR.
[2017-03-24 12:00] VITALS: BP 115/52
[2017-03-24] MEDS: INSULIN DETEMIR 100 UNITS/ML 10 ML VIAL SUBQ SCH (12:15)
--- NOTE | 2017-03-24 12:46 | NUR ---
DIABETIC TEACHING PROVIDED TO PT AND HER FAMILY AT BEDSIDE. HANDOUT PROVIDED. PT VERBALIZED UNDERSTANDING.
--- NOTE | 2017-03-24 13:19 | NUR ---
CM NOTE RECEIVED FAX FROM [facility] STATING PATIENT ADMISSION APPROVED 03/21/17 PER DRG, NRD 03/28/17. REF# [id number].
[2017-03-24] MEDS ORDERED: LACT1.4C PO (13:42)
[2017-03-24] MEDS ORDERED: SULF-58 PO (13:42)
--- NOTE | 2017-03-24 15:12 | NUR ---
PT HAS HOME MEDICATIONS IN PHARMACY. PT TOLD TO WAIT WHILE RN WENT TO GET THEM FOR PT. PT VERBALIZED UNDERSTANDING. PT STATED SHE "WONT LEAVE WITHOUT MY MEDS". UPON RETURN WITH MEDS PT HAD LEFT WITH FAMILY. PT CALLED. UNABLE TO REACH PT. MEDICATIONS LEFT IN HOUSE SUPERVISORS ROOM.
--- NOTE | 2017-03-24 15:12 | NUR ---
PT CLEARED FOR DISCHARGE HOME. PT INSTRUCTIONS PROVIDED. PT VERBALIZED UNDERSTANDING. IV TAKEN OUT TIP INTACT. FORMS SIGNED AND IN CHART. NO S/S OF ACUTE DISTRESS. PT WHEELED TO FRONT LOBBY WITH FAMILY. PT REMAINS STABLE.
== END 2017-03-24 15:15 | disposition home or self-care (01) | DRG 420 ==
LOC: MED 13:28 → MIC 17:15 → MTU 03-22 18:40
PROVIDERS: ADMIT Family Medicine; ATTEND Family Medicine
PROC: 05HN33Z Insertion of Infusion Device into Left Internal Jugular Vein, Percutaneous Approach (ICD-10-PCS; principal; 2017-03-21)
DX: E13.10 Other specified diabetes mellitus with ketoacidosis without coma (principal); N17.0 Acute kidney failure with tubular necrosis; E43 Unspecified severe protein-calorie malnutrition; I27.2 Other secondary pulmonary hypertension; M32.9 Systemic lupus erythematosus, unspecified; E83.41 Hypermagnesemia; E83.52 Hypercalcemia; E87.1 Hypo-osmolality and hyponatremia; N39.0 Urinary tract infection, site not specified; E02 Subclinical iodine-deficiency hypothyroidism; Z88.1 Allergy status to other antibiotic agents; J45.909 Unspecified asthma, uncomplicated; F41.9 Anxiety disorder, unspecified; M06.9 Rheumatoid arthritis, unspecified; E66.9 Obesity, unspecified; Z68.37 Body mass index [BMI] 37.0-37.9, adult; E78.5 Hyperlipidemia, unspecified; Z83.3 Family history of diabetes mellitus; Z82.49 Family history of ischemic heart disease and other diseases of the circulatory system; Z84.89 Family history of other specified conditions; Z84.1 Family history of disorders of kidney and ureter
CPT/HCPCS: 36415; 36600; 71010; 80048; 80053; 80305; 81001; 82009; 82150; 82803; 82948; 83036; 83605; 83690; 83735; 83880; 84100; 84436; 84439; 84443; 84479; 85025; 85610; 85730; 87040; 87081; 87086; 87186; 93005; 93925; 93970; 94640; 96372; 96374; 96375; 99291; G0480; J1170; J1642; J1815; J1885; J1956; J2001; J2060; J2270; J2405; J3475; J3480; J7030; J7620; Q0092

== ENCOUNTER 2017-03-25 00:50 | Emergency (ER) | payer OTHER ==
[~2017-03-25] VITALS: Ht 175.3 cm; Wt 67.1 kg
[~2017-03-25 00:50] MED LIST changes: +BLOO-571 MC; +BLOO1KIT MC; +INSU-1331 SQ; +LACT1.4C PO; +PIOG15TA13 PO; +SULF-58 PO; +[UNRECOGNIZED DRUG - CODE] MC
--- NOTE | 2017-03-25 00:50 | NUR ---
Patient was BIBA at this time.
[2017-03-25 01:29] VITALS: BP 101/54
--- NOTE | 2017-03-25 01:33 | NUR ---
Patient was taken to bed 06 via wheelchair per RN.
[2017-03-25] MEDS ORDERED: predniSONE 20 MG TAB PO ONE (01:45)
[2017-03-25] MEDS ORDERED: NACL 0.9% 1,000 ML IV ONE (01:45)
--- NOTE | 2017-03-25 02:00 | NUR ---
BIBA, PATIENT PRESENTS TO ED WITH C/O BODY PAIN; BACK PAIN PT DENIES VOMITTING AND DIARRHEA. SKIN IS PINK/WARM/DRY; AAOX4 WITH EVEN AND STEADY GAIT; LUNGS CLEAR BL; HR EVEN AND REGULAR; PT DENIES ANY FEVER, CP, SOB, OR COUGH AT THIS TIME; PATIENT STATES PAIN OF 10/10 AT THIS TIME; VSS; PATIENT POSITIONED FOR COMFORT; HOB ELEVATED; BEDRAILS UP X2; BED DOWN. ER MD MADE AWARE OF PT STATUS.
[2017-03-25 02:03] LABS: HEMOGLOBIN 13.3 g/dL (12.0-16.0); MEAN CORPUSCULAR HEMOGLOBIN 25 pg (27-31); MEAN CORPUSCULAR HGB CONC 32 g/dL (33-37); MEAN CORPUSCULAR VOLUME 80 fL (80-94); PLATELET COUNT (AUTO) 148 K/uL (140-450); RED BLOOD CELL COUNT(AUTO) 5.25 MIL/uL (4.20-5.40); RED CELL DISTRIBUTION WIDTH 13.9 % (11.6-13.7); WHITE BLOOD COUNT (AUTO) 7.8 K/uL (4.8-10.8)
[2017-03-25] MEDS ORDERED: METOCLOPRAMIDE 10 MG/2 ML INJ VIAL IVP ONE (02:10)
[2017-03-25 02:19] LABS: EOSINOPHILS % (MANUAL) 1 % (0-4); LYMPHOCYTES % (MANUAL) 28 % (20-46); MONOCYTES % (MANUAL) 3 % (5-12)
[2017-03-25] MEDS ORDERED: KETOROLAC 30 MG/ML VIAL IVP ONE (02:45)
[2017-03-25 02:49] LABS: ALBUMIN 2.8 g/dL (3.4-5.0); ANION GAP 14.7 (8-16); CARBON DIOXIDE 22.1 mmol/L (21-32); CREATININE 1.1 mg/dL (0.6-1.3); POTASSIUM 3.8 mmol/L (3.5-5.1); TOTAL BILIRUBIN 0.7 mg/dL (0.0-1.0)
[2017-03-25] MEDS ORDERED: INSULIN HUMAN REGULAR 100 UNITS/ML 10 ML VIAL IVP ONE (02:55)
[2017-03-25] MEDS ORDERED: HYDROmorphone 1 MG/ML AMP IVP ONE (02:55)
[2017-03-25 04:29] LABS: APPEARANCE,URINE TURBID (CLEAR); BILIRUBIN,URINE 1+ (NEGATIVE); BLOOD, URINE TRACE-L (NEGATIVE); COLOR,URINE YELLOW (YELLOW); LEUKOCYTE ESTERASE ,URINE TRACE (NEGATIVE); NITRITE, URINE NEGATIVE (NEGATIVE); UGLUCOSE 2+ (NEGATIVE)
[2017-03-25 04:47] LABS: RBC,URINE 0-5 (RARE) /HPF (0-5)
[2017-03-25 04:54] VITALS: BP 114/59
--- NOTE | 2017-03-25 04:54 | NUR ---
Patient discharged with v/s stable. Written and verbal after care instructions given and explained. Patient verbalized understanding. Ambulatory with steady gait. All questions addressed prior to discharge. Advised to follow up with PMD.
== END 2017-03-25 04:54 | disposition home or self-care (01) ==
LOC: MED 00:50
DX: E11.22 Type 2 diabetes mellitus with diabetic chronic kidney disease (principal); E11.65 Type 2 diabetes mellitus with hyperglycemia; I13.0 Hypertensive heart and chronic kidney disease with heart failure and stage 1 through stage 4 chronic kidney disease, or unspecified chronic kidney disease; N18.9 Chronic kidney disease, unspecified; I50.9 Heart failure, unspecified; M79.1 Myalgia; Z88.1 Allergy status to other antibiotic agents; J45.909 Unspecified asthma, uncomplicated
CPT/HCPCS: 36415; 80053; 81001; 81025; 82948; 83690; 84484; 85025; 87086; 93005; 96361; 96374; 96375; 99285; J1170; J1815; J1885; J2765; J7030; J7512

== ENCOUNTER 2017-04-01 18:35 | Inpatient (IN) | payer OTHER ==
[~2017-04-01] VITALS: Ht 175.3 cm; Wt 108.9 kg
[~2017-04-01 18:35] MED LIST changes: +ACT15 PO; -PIOG15TA13 PO
--- NOTE | 2017-04-01 18:35 | NUR ---
Patient JAXSONCameron MELISSA, triaged by RN. Waiting for an available bed.
[2017-04-01 18:39] VITALS: BP 140/69
--- NOTE | 2017-04-01 18:59 | NUR ---
Patient transferred to bed 7 for further care. RN evaluating patient at bedside.
--- NOTE | 2017-04-01 19:10 | NUR ---
31Y/F PT. BIBA TO ED WITH C/O ABDOMINAL PAIN X 5 DAYS. PT. WAS ADMITTED IN [place] WITH PANCREATITIS, TODAY HAVING ABDOMINAL PAIN WITH FEVER, CHILLS, N/V. HX. LUPUS. AAO X4, UNABLE TO AMBULATE AT THIS TIME. RESPIRATIONS ROOM AIR, EVEN AND UNLABORED. SKIN WARM AND DRY. C/O PAIN 10/10. VS, ELEVATED TEMP, TACHYCARDIA, ER MD MADE AWARE OF PT. STATUS.
[2017-04-01] MEDS ORDERED: NACL 0.9% 1,000 ML IV SCH (19:22)
[2017-04-01] MEDS ORDERED: MORPHINE SULFATE 4 MG/ML SYR IVP ONE ×2 (19:25→21:05)
[2017-04-01] MEDS ORDERED: ONDANSETRON 4 MG/2 ML VIAL IVP ONE (19:25)
[2017-04-01 19:37] LABS: APPEARANCE,URINE CLEAR (CLEAR); BILIRUBIN,URINE NEGATIVE (NEGATIVE); BLOOD, URINE TRACE-L (NEGATIVE); COLOR,URINE YELLOW (YELLOW); LEUKOCYTE ESTERASE ,URINE NEGATIVE (NEGATIVE); NITRITE, URINE NEGATIVE (NEGATIVE); UGLUCOSE NEGATIVE (NEGATIVE)
[2017-04-01 19:40] LABS: RBC,URINE 0-5 (RARE) /HPF (0-5); WBC,URINE 6-15 (FEW) /HPF (0-5)
[2017-04-01 19:53] LABS: HEMATOCRIT 41.8 % (36-48); HEMOGLOBIN 13.2 g/dL (12.0-16.0); MEAN CORPUSCULAR HEMOGLOBIN 26 pg (27-31); MEAN CORPUSCULAR HGB CONC 32 g/dL (33-37); MEAN CORPUSCULAR VOLUME 81 fL (80-94); PLATELET COUNT (AUTO) 264 K/uL (140-450); RED BLOOD CELL COUNT(AUTO) 5.19 MIL/uL (4.20-5.40); RED CELL DISTRIBUTION WIDTH 14.2 % (11.6-13.7); WHITE BLOOD COUNT (AUTO) 11.2 K/uL (4.8-10.8)
[2017-04-01 20:13] LABS: ANION GAP 19.1 (8-16); CARBON DIOXIDE 24.8 mmol/L (21-32); CREATININE 1.1 mg/dL (0.6-1.3); LYMPHOCYTES % (MANUAL) 6 % (20-46); MONOCYTES % (MANUAL) 3 % (5-12); TOTAL BILIRUBIN 0.6 mg/dL (0.0-1.0)
[2017-04-01 20:14] LABS: POTASSIUM 2.9 mmol/L (3.5-5.1)
[2017-04-01] MEDS ORDERED: ACETAMINOPHEN EXTRA STRENGTH 500 MG TAB ONE (20:14)
[2017-04-01] MEDS ORDERED: KCL 20 MEQ/WATER INJ PREMIX 200 ML IV ONE (20:20)
[2017-04-01] MEDS ORDERED: NACL 0.9% 1,000 ML IV ONE (20:50)
[2017-04-01] MEDS ORDERED: AZTREONAM 2,000 MG in DEXTROSE 5% 100 ML IV ONE (20:50)
--- NOTE | 2017-04-01 21:30 | NUR ---
O2 RA 88%, PLACE ON O2 2LPM VIA NC O2 SAT 99-100%. RYLEE GARCIA MADE AWARE.
[2017-04-01] MEDS ORDERED: AZTREONAM 1,000 MG VIAL ONE (21:45)
--- NOTE | 2017-04-01 22:00 | NUR ---
RECHECK TEMP 101.8, PT. REFUSES ICE PACKS. ER MADE AWARE. PT. UNABLE TO SWALLOW PILL. NEW ORDER RECIEVED.
[2017-04-01] MEDS ORDERED: HYDROcodone/APAP 7.5/325 MG 1 TAB PO PRN (22:05)
[2017-04-01] MEDS ORDERED: DOCUSATE SODIUM 100 MG GELCAP PO PRN (22:05)
[2017-04-01] MEDS ORDERED: ACETAMINOPHEN 650 MG SUPP RC ONE (22:10)
[2017-04-01] MEDS ORDERED: POTASSIUM CHLORIDE 10 MEQ TABER PO ONE (22:15)
[2017-04-01 22:26] LABS: PROTHROMBIN TIME 11.6 secs (10.8-13.4)
[2017-04-01 22:50] VITALS: BP 122/56
[2017-04-01] MEDS ORDERED: KETOROLAC 30 MG/ML VIAL IVP PRN ×3 (22:50→23:50)
--- NOTE | 2017-04-01 22:50 | NUR ---
Patient will be admitted to care of DR. SANFORD. Admited to TELEMETRY. Will go to [id number]. Belongings list completed. Report to JUAN PABLO AYALA.
--- NOTE | 2017-04-01 22:50 | NUR ---
Admitted from ER, with chief complaint of ABD PAIN, DX PANCREATITIS, SEPSIS 31 y/o, Female, GUARDED, AOX4, ABLE TO VERBALIZE NEEDS. PT C/O SEVERE ABD PAIN. SEE PAIN ASSESSMENT. WILL MEDICATE ORDERED. SPO2 100% AT O2 2L NC, RR 28. AUDIO VISUAL EQUIPMENT RENTAL CLERK IN PLACE. PT DENIES CHEST PAIN. PT C/O NAUSEA, WILL MEDICATE ORDERED. TEMP 102.2, ICE PACKS AND COOLING MEASURES ENSURED, WILL MEDICATE WITH TYLENOL PRN ORDERED. BOTH IV ACCESS TO LEFT FOREARM AND RIGHT FOREARM ASYMPTOMATIC PATENT AND INTACT. IVFs FROM ER INFUSING WELL. DISCUSSED AND REVIEWED PLAN OF CARE WITH PT. PT VERBALIZED UNDERSTANDING. oriented to call light, bed, phone,television, bathroom, smoking policy, visiting hours, procedures, ID bracelet on. Belongings list checked. ALL NEEDS MET. SAFETY MEASURES ENSURED. CALL LIGHT WITHIN REACH. WILL CONTINUE TO MONITOR.
[2017-04-01] MEDS: MORPHINE SULFATE 2 MG/ML SYR IVP PRN (23:10)
[2017-04-01] MEDS: NACL 0.9% 1,000 ML IV SCH (23:10)
--- NOTE | 2017-04-01 23:30 | NUR ---
DR GUTIERREZ AT BEDSIDE TO DISCUSS PLAN OF CARE WITH PT.
[2017-04-01] MEDS: ACETAMINOPHEN 325 MG TAB PO PRN (23:41)
[2017-04-01] MEDS: ONDANSETRON 4 MG/2 ML VIAL IM/IVP PRN (23:42)
[2017-04-01] MEDS: BLOOD GLUCOSE MONITORING 1 DEV DEV FS SCH (23:45)
[2017-04-01] MEDS ORDERED: LORazepam 0.5 MG TAB PO PRN (23:50)
[2017-04-01] MEDS ORDERED: BISACODYL 10 MG SUPP RC PRN (23:50)
--- NOTE | 2017-04-01 23:50 | NUR ---
BLOOD SUGAR 125, NO INSULIN COVERAGE NEEDED. PT C/O NAUSEA, ADMINISTERED ZOFRAN IV PRN ORDERED. PT TEMP 102.2, ADMINISTERED TYLENOL PO PRN ORDERED. WILL CONTINUE TO MONITOR TEMP.
[2017-04-02] VITALS (8 sets, daily range): BP systolic 86–133; BP diastolic 51–74
[2017-04-02 00:16] LABS: CHOL/HDL RATIO 3.7 (1-4.5); FREE T4 (FREE THYROXINE) 1.39 ng/dL (0.76-1.46); THYROID STIMULATING HORMONE 0.52 uIU/mL (0.34-3.74)
[2017-04-02 00:46] LABS: MAGNESIUM 0.9 mg/dL (1.8-2.4)
[2017-04-02 00:47] LABS: PHOSPHORUS 1.7 mg/dL (2.5-4.9)
[2017-04-02] MEDS ORDERED: MAG SULF 2000 MG/WATER PREMIX 50 ML IV ONE (01:10)
[2017-04-02] MEDS: MORPHINE SULFATE 2 MG/ML SYR IVP PRN ×3 (02:11→08:24)
--- NOTE | 2017-04-02 02:11 | NUR ---
PT C/O ABD PAIN. SEE PAIN ASSESSMENT. ADMINISTERED MORPHINE IVP PRN ORDERED WITH EDUCATION. ALL NEEDS MET. SAFETY MEASURES ENSURED. CALL LIGHT WITHIN REACH. WILL CONTINUE TO MONITOR.
[2017-04-02] MEDS: NACL 0.9% 1,000 ML IV SCH (03:05)
[2017-04-02] MEDS ORDERED: AZTREONAM 1,000 MG VIAL ONE (04:45)
[2017-04-02] MEDS ORDERED: metroNIDAZOLE 500 MG/NS PREMIX 100 ML IV SCH (05:00)
[2017-04-02] MEDS ORDERED: AZTREONAM 1,000 MG in DEXTROSE 5% 50 ML IV SCH (05:00)
[2017-04-02] MEDS: diphenhydrAMINE 50 MG/ML VIAL IVP PRN (05:11)
--- NOTE | 2017-04-02 05:11 | NUR ---
PT C/O ABD PAIN. SEE PAIN ASSESSMENT. ADMINISTERED MORPHINE IVP PRN ORDERED. PT C/O ITCHING ON BUE/BLE, NO RASHES NOTED. MADE MD AWARE. ADMINISTERED BENADRYL IVP PRN ORDERED. IVPB INFUSING WELL. ALL NEEDS MET. SAFETY MEASURES ENSURED. CALL LIGHT WITHIN REACH. WILL CONTINUE TO MONITOR.
[2017-04-02] MEDS: BLOOD GLUCOSE MONITORING 1 DEV DEV FS SCH ×4 (06:02→20:34)
[2017-04-02 06:46] LABS: BASOPHILS # (AUTO) 0.1 K/uL (0.00-0.22); BASOPHILS % (AUTO) 1.3 % (0.0-2.0); EOSINOPHILS # (AUTO) 0.1 K/uL (0-0.4); EOSINOPHILS % (AUTO) 0.9 % (0.0-4.0); HEMATOCRIT 35.7 % (36-48); HEMOGLOBIN 11.3 g/dL (12.0-16.0); LYMPHOCYTES # (AUTO) 1.7 K/uL (2.5-16.5); LYMPHOCYTES % (AUTO) 22.1 % (20.5-51.1); MEAN CORPUSCULAR HEMOGLOBIN 26 pg (27-31); MEAN CORPUSCULAR HGB CONC 32 g/dL (33-37); MEAN CORPUSCULAR VOLUME 81 fL (80-94); MONOCYTES # (AUTO) 0.3 K/uL (0.8-1.0); MONOCYTES % (AUTO) 4.6 % (1.7-9.3); NEUTROPHILS # (AUTO) 5.3 K/uL (1.8-7.7); NEUTROPHILS % (AUTO) 71.1 % (42.2-75.2); PLATELET COUNT (AUTO) 202 K/uL (140-450); RED BLOOD CELL COUNT(AUTO) 4.39 MIL/uL (4.20-5.40); RED CELL DISTRIBUTION WIDTH 14.2 % (11.6-13.7); WHITE BLOOD COUNT (AUTO) 7.5 K/uL (4.8-10.8)
--- NOTE | 2017-04-02 07:15 | NUR ---
ENDORSED PLAN OF CARE TO AM NURSE. CONDITION STABLE.
--- NOTE | 2017-04-02 07:16 | NUR ---
RECEIVED REPORT FROM NIGHT NURSE AT PT BEDSIDE. PT SLEEPING, EASILY AWAKENS, C/O BACK PAIN. IV SITE PATENT AND INTACT. ON O2 2L NC. NO S/S OF RESPIRATORY DISTRESS NOTED. DENIES CHEST PAIN. SCDS IN PLACE. CALL LIGHT WITHIN REACH. NPO STATUS.
[2017-04-02 07:23] LABS: CARBON DIOXIDE 25.2 mmol/L (21-32); CREATININE 0.8 mg/dL (0.6-1.3); POTASSIUM 3.2 mmol/L (3.5-5.1)
[2017-04-02 07:25] LABS: MAGNESIUM 1.8 mg/dL (1.8-2.4); PHOSPHORUS 3.5 mg/dL (2.5-4.9)
[2017-04-02] MEDS ORDERED: KETOROLAC 30 MG/ML VIAL IVP PRN (07:30)
[2017-04-02] MEDS: SILDENAFIL 20 MG TAB PO SCH ×2 (08:25→20:24)
[2017-04-02] MEDS: PIOGLITAZONE 15 MG TAB PO SCH (08:25)
[2017-04-02] MEDS: LISINOPRIL 5 MG TAB PO SCH (08:25)
[2017-04-02] MEDS: ATORVASTATIN 20 MG TAB PO SCH (08:25)
[2017-04-02] MEDS: predniSONE 10 MG TAB PO SCH (08:25)
[2017-04-02] MEDS: LACTOBACILLUS RHAMNOSUS GG 1 EACH CAP PO SCH (08:26)
[2017-04-02] MEDS: SODIUM PHOS / POTASSIUM PHOS 1 PKT PDR PO SCH ×2 (08:26→20:23)
[2017-04-02] MEDS: LEVOFLOXACIN 750 MG/D5W PREMIX 150 ML IV SCH (08:26)
[2017-04-02] MEDS: GABAPENTIN 100 MG CAP PO SCH ×3 (08:26→17:20)
--- NOTE | 2017-04-02 08:53 | NUR ---
PATIENT HAS BEEN SCREENED AND CATEGORIZED HIGH NUTRITION RISK. PATIENT WILL BE SEEN WITHIN 1-2 DAYS OF ADMISSION. 04/02/17-04/03/[address]
[2017-04-02] MEDS ORDERED: LACTOBACILLUS RHAMNOSUS GG 1 EACH CAP PO SCH (09:00)
[2017-04-02] MEDS ORDERED: PIOGLITAZONE 15 MG TAB PO SCH (09:00)
[2017-04-02] MEDS ORDERED: INSULIN DETEMIR 100 UNITS/ML 10 ML VIAL SUBQ SCH (09:05)
--- NOTE | 2017-04-02 09:18 | NUR ---
CM NOTE INITIAL REVIEW FAXED TO EN [phone] PARVIN JAS EXT [phone]
--- NOTE | 2017-04-02 09:20 | NUR ---
UNABLE TO OBTAIN ABG SAMPLE PUNCTURE SITE LEFT AND RIGHT BRACHIAL X1 EACH FAINT PULSES IV LOCATED RIGHT AND LEFT RADIAL REGION WILL PASS ON TO Syl RAMSAY RCP FOR ATTEMPT
[2017-04-02] MEDS ORDERED: POTASSIUM CHLORIDE 20% 40 MEQ/15 ML UDC PO SCH (09:30)
[2017-04-02] MEDS: DEXT 5% / NACL 0.45% 1,000 ML IV SCH ×4 (09:46→21:33)
[2017-04-02] MEDS: APIXABAN 2.5 MG TAB PO SCH ×2 (09:47→20:23)
[2017-04-02] MEDS: ONDANSETRON 4 MG/2 ML VIAL IM/IVP PRN ×3 (09:57→23:12)
[2017-04-02] MEDS: KETOROLAC 30 MG/ML VIAL IVP PRN ×3 (10:19→23:03)
--- NOTE | 2017-04-02 10:25 | NUR ---
PATIENT REFUSING ABG DRAW BY RT DUE TO PAIN. PATIENT C/O NAUSEA AND UNRESOLVED PAIN, MEDICATED WITH ZOFRAN IVP AND TORADOL IVP.
--- NOTE | 2017-04-02 11:45 | NUR ---
ABG PUNCTURE BY Syl RAMSAY, DIRECTOR OF STUDENT AFFAIRS SITE AT LEFT RADIAL NO ADVERSE REACTIONS NOTED
[2017-04-02] MEDS: INSULIN LISPRO SLIDING SCALE 100 UNITS/ML VIAL SUBQ PRN ×3 (11:47→21:32)
[2017-04-02] MEDS: HYDROmorphone 1 MG/ML AMP IVP PRN ×3 (11:51→18:30)
--- NOTE | 2017-04-02 14:30 | NUR ---
04/02/17 RD INITIAL ASSESSMENT COMPLETED PLEASE REFER TO NUTRITION ASSESSMENT UNDER CARE ACTIVITY FOR ESTIMATED NUTRITIONAL NEEDS. 1. CONTINUE NPO DIET 2. WHEN MEDICALLY FEASIBLE INITIATE CLEAR LIQUID DIET, ADVANCE TOLERATED TO LOW FAT DIET 3. RD TO FOLLOW UP WITHIN 2-3 DAYS; HIGH RISK AMY HOLDER, SHANI
--- NOTE | 2017-04-02 15:14 | NUR ---
COVERING DR. RICHARDS MADE AWARE OF SUSTAINED HR 140S. TO PLACE ORDERS.
[2017-04-02] MEDS ORDERED: METOPROLOL 5 MG/5 ML VIAL IV ONE (15:20)
[2017-04-02] MEDS ORDERED: METOPROLOL 25 MG TAB PO SCH (16:17)
--- NOTE | 2017-04-02 17:20 | NUR ---
COMPLETE BED BATH GIVEN TO PATIENT. PATIENT C/O PAIN, WILL MEDICATE ORDERED. IV STARTED ON RIGHT FOREARM #20. CT MADE AWARE, CONSENT SIGNED IN CHART.
--- NOTE | 2017-04-02 19:11 | NUR ---
ENDORSED PLAN OF CARE TO NIGHT RN LUCY AT PT BEDSIDE. NO S/S OF ACUTE DISTRESS NOTED.
--- NOTE | 2017-04-02 19:30 | NUR ---
RECEIVED REPORT FROM AM NURSE. PT RESTING IN BED, AOX4, ABLE TO VERBALIZE NEEDS. PT C/O ABD PAIN. BP LOW AT THIS TIME, WILL HOLD PAIN MEDS, WILL MONITOR PAIN, WILL NOTIFY MD. SPO2 96% AT O2 2L NC, RR [address]. CHEF INSTRUCTOR IN PLACE. PT DENIES CHEST PAIN. TEMP 99.7, ICE PACKS AND COOLING MEASURES ENSURED, WILL MONITOR TEMP. IV ACCESS TO LEFT FOREARM REMOVED, CANNULA INTACT, PT TOLERATED WELL. BOTH IV ACCESS TO DISTAL RIGHT FOREARM AND PROXIMAL RIGHT FOREARM ASYMPTOMATIC, PATENT AND INTACT. IVF INFUSING WELL. DISCUSSED AND REVIEWED PLAN OF CARE WITH PT. PT VERBALIZED UNDERSTANDING. oriented to call light, bed, phone,television, bathroom, smoking policy, visiting hours, procedures, ID bracelet on. Belongings list checked. ALL NEEDS MET. SAFETY MEASURES ENSURED. CALL LIGHT WITHIN REACH. WILL CONTINUE TO MONITOR.
--- NOTE | 2017-04-02 19:50 | NUR ---
MADE MD AWARE OF LOW BP, DR GUTIERREZ AT BEDSIDE TO EXAMINE PT AND DISCUSS PLAN OF CARE.
[2017-04-02] MEDS ORDERED: NACL 0.9% 500 ML IV ONE ×2 (20:00→21:40)
[2017-04-02] MEDS: AMITRIPTYLINE 25 MG TAB PO SCH (20:22)
--- NOTE | 2017-04-02 20:24 | NUR ---
ADMINISTERED 500ML NS BOLUS WIDE OPEN ORDERED, IVF INFUSING WELL. HELD SILDENAFIL DUE TO LOW BP. ADMINISTERED REMAINING DUE MEDS WITH EDUCATION. PT VERBALIZED UNDERSTANDING, TOLERATED MEDS WELL. ALL NEEDS MET. SAFETY MEASURES ENSURED. CALL LIGHT WITHIN REACH. WILL CONTINUE TO MONITOR.
--- NOTE | 2017-04-02 21:10 | NUR ---
BP RECHECKED, 86/57 AND 84/51; MADE DR GUTIERREZ AWARE, ORDERS PENDING, WILL CARRY OUT. ALSO MADE AWARE OF PT C/O ABD PAIN AT THIS TIME. MADE AWARE THAT TORADOL IVP PRN [id number] IS NOT DUE YET. NO CHANGE IN ORDERS RECEIVED FOR PAIN, STATED TO JUST WAIT AND MONITOR FOR NOW.
--- NOTE | 2017-04-02 21:33 | NUR ---
ASSISTED PT TO TURN AND REPOSITION SELF, OFFLOADED PRESSURE AREAS. PT C/O ABD PAIN, BUT ABLE TO TOLERATE. ADMINISTERED INSULIN COVERAGE WITH EDUCATION. IVF D5-1/2NS INFUSING WELL. WILL CONTINUE TO MONITOR.
--- NOTE | 2017-04-02 21:45 | NUR ---
BP RECHECKED, 102/56 AND 100/64; MADE DR GUTIERREZ AWARE. ALSO MADE AWARE OF PT C/O ABD PAIN AT THIS TIME, PT REQUESTING DILAUDID IVP. MADE AWARE, NO CHANGE IN ORDERS RECEIVED. STATED IT IS OK TO GIVE TORADOL IVP PRN AT THIS TIME, AND INSTRUCTED TO RECHECK BP IN ONE HOUR. WILL CARRY OUT.
--- NOTE | 2017-04-02 21:51 | NUR ---
ADMINISTERED 2ND BAG OF 500ML NS BOLUS WIDE OPEN ORDERED. BOTH IVF INFUSING WELL. ALL NEEDS MET. SAFETY MEASURES ENSURED. CALL LIGHT WITHIN REACH. WILL CONTINUE TO MONITOR.
--- NOTE | 2017-04-02 23:15 | NUR ---
PT C/O ABD PAIN. SEE PAIN ASSESSMENT. ADMINISTERED TORADOL IVP PRN ORDERED. PT C/O NAUSEA. ADMINISTERED ZOFRAN PRN IVP ORDERED. ALL NEEDS MET. SAFETY MEASURES ENSURED. CALL LIGHT WITHIN REACH. WILL CONTINUE TO MONITOR.
[2017-04-03] VITALS (7 sets, daily range): BP systolic 93–137; BP diastolic 20–78
[2017-04-03] MEDS: ACETAMINOPHEN 325 MG TAB PO PRN (00:28)
--- NOTE | 2017-04-03 00:28 | NUR ---
PT TEMP 100.7, ADMINISTERED TYLENOL PO PRN ORDERED WITH EDUCATION. PT VERBALIZED UNDERSTANDING, TOLERATED MED WELL. ALL NEEDS MET. SAFETY MEASURES ENSURED. CALL LIGHT WITHIN REACH. WILL CONTINUE TO MONITOR.
--- NOTE | 2017-04-03 01:05 | NUR ---
CALLED DR MO, COMPUTER APPLICATIONS INSTRUCTOR FOR DR GIBSON. DISCUSSED PT DX SBO, S/P EXP LAP WITH ABD DISHISSENCE AND RECENT S/P DEBRIDEMENT OF ABD WOUND WITH WOUND VAC SUCTION; MADE AWARE OF PT BP 163/104, 169/94, 163/97 AT THIS TIME. DISCUSSED THAT PT IS NOT ON TELE; ORDERS RECEIVED FOR HYDRALYZINE 25MG PO Q4H PRN FOR SBP > 150. ORDERS PENDING, WILL CARRY OUT. Addendum: 04/03/17 at 0118 by Gerald Iniguez RN DISREGARD; WRONG PATIENT
--- NOTE | 2017-04-03 01:18 | NUR ---
PT BACK FROM CT AT THIS TIME. Addendum: 04/03/17 at 0219 by Gerald Iniguez RN VS NOTED. TEMP 99.5, COOLING MEASURES MAINTAINED. SPO2 96% AT O2 2L NC, RR 22. BP 90/57, HR 117. PT SLEEPING AT THIS TIME, AROUSABLE TO NAME. ALL NEEDS MET. SAFETY MEASURES ENSURED. CALL LIGHT WITHIN REACH. WILL CONTINUE TO MONITOR.
[2017-04-03] MEDS ORDERED: ALBUTEROL SULFATE/IPRATROPIU 3 ML SOL IH PRN (02:40)
--- NOTE | 2017-04-03 02:40 | NUR ---
PT C/O SOB. VS TAKEN; BP 98/60, HR 117, SPO2 95% AT O2 2L NC, RR 24, TEMP 98.4; MADE DR GUTIERREZ AWARE OF PT C/O SOB AND VITAL SIGNS. DISCUSSED THAT PT HAS HX OF ASTHMA AND PULMONARY HTN. ALSO DISCUSSED THAT PT'S TEMP WAS 100.7, WAS GIVEN TYLENOL PRN ORDERED AND TEMP IS NOW 98.4 BUT HR IS STILL ELEVATED AT 117. ORDERS PENDING, WILL CARRY OUT.
--- NOTE | 2017-04-03 02:56 | NUR ---
NOTIFIED BY RT THAT PT IS CURRENTLY RECEIVING BREATHING TX AT THIS TIME.
[2017-04-03] MEDS: DEXT 5% / NACL 0.45% 1,000 ML IV SCH ×4 (03:00→12:14)
--- NOTE | 2017-04-03 04:25 | NUR ---
PT SLEEPING COMFORTABLY, AROUSABLE TO NAME. NO S/S OF ACUTE DISTRESS. SPO2 100% AT O2 2L NC, RR 20 UNLABORED. ALL NEEDS MET. IVF INFUSING WELL. SAFETY MEASURES ENSURED. CALL LIGHT WITHIN REACH. WILL CONTINUE TO MONITOR.
[2017-04-03] MEDS: diphenhydrAMINE 50 MG/ML VIAL IVP PRN (06:30)
[2017-04-03] MEDS: KETOROLAC 30 MG/ML VIAL IVP PRN ×3 (06:30→20:02)
[2017-04-03] MEDS: BLOOD GLUCOSE MONITORING 1 DEV DEV FS SCH ×4 (06:32→21:16)
--- NOTE | 2017-04-03 06:32 | NUR ---
VS CHECKED, 97/57, HR 115; TEMP 98.5, SPO2 97% AT O2 2L NC; RR 22 PT C/O ABD PAIN. SEE PAIN ASSESSMENT. ADMINISTERED TORADOL IVP PRN ORDERED. PT ITCHING. ADMINISTERED BENADRYL IVP PRN ORDERED. ALL NEEDS MET. IVF INFUSING WELL. SAFETY MEASURES ENSURED. CALL LIGHT WITHIN REACH. WILL CONTINUE TO MONITOR.
[2017-04-03 06:36] LABS: BASOPHILS # (AUTO) 0.3 K/uL (0.00-0.22); BASOPHILS % (AUTO) 4.3 % (0.0-2.0); EOSINOPHILS # (AUTO) 0.1 K/uL (0-0.4); HEMATOCRIT 35.7 % (36-48); HEMOGLOBIN 10.9 g/dL (12.0-16.0); LYMPHOCYTES # (AUTO) 1.1 K/uL (2.5-16.5); MEAN CORPUSCULAR HEMOGLOBIN 25 pg (27-31); MEAN CORPUSCULAR HGB CONC 31 g/dL (33-37); MEAN CORPUSCULAR VOLUME 82 fL (80-94); MONOCYTES # (AUTO) 0.6 K/uL (0.8-1.0); MONOCYTES % (AUTO) 7.3 % (1.7-9.3); NEUTROPHILS # (AUTO) 5.5 K/uL (1.8-7.7); NEUTROPHILS % (AUTO) 73.4 % (42.2-75.2); PLATELET COUNT (AUTO) 207 K/uL (140-450); RED BLOOD CELL COUNT(AUTO) 4.34 MIL/uL (4.20-5.40); RED CELL DISTRIBUTION WIDTH 14.4 % (11.6-13.7)
[2017-04-03 06:47] LABS: ANION GAP 12.2 (8-16); CARBON DIOXIDE 25.4 mmol/L (21-32); CREATININE 0.9 mg/dL (0.6-1.3); POTASSIUM 3.6 mmol/L (3.5-5.1)
[2017-04-03 06:51] LABS: MAGNESIUM 1.3 mg/dL (1.8-2.4); PHOSPHORUS 3.3 mg/dL (2.5-4.9)
--- NOTE | 2017-04-03 07:15 | NUR ---
ENDORSED PLAN OF CARE TO AM NURSE. CONDITION STABLE.
--- NOTE | 2017-04-03 07:15 | NUR ---
RECEIVED PATIENT REPORT AT BEDSIDE. PATIENT AWAKE AND ALERT. PATIENT ON 2L O2. NO SOB NOTED. IV LINE NOTED TO THE RIGHT FOREARM. PATIENT ON TELE MONITORING. BED LOWERED WITH CALL LIGHT WITHIN REACH. WILL CONTINUE TO MONITOR
[2017-04-03 07:30] LABS: WHITE BLOOD COUNT (AUTO) 7.6 K/uL (4.8-10.8)
[2017-04-03 08:10] LABS: AMYLASE 54 U/L (25-115); LIPASE 297 U/L (73-393)
--- NOTE | 2017-04-03 08:26 | NUR ---
CM NOTE CONCURRENT REVIEW FAXED TO EN [phone] PARVIN JAS EXT [id number]
[2017-04-03 08:34] LABS: T4 (THYROXINE) 9.5 ug/dL (4.5-12.0)
[2017-04-03] MEDS: LEVOFLOXACIN 750 MG/D5W PREMIX 150 ML IV SCH (08:34)
[2017-04-03] MEDS: SODIUM PHOS / POTASSIUM PHOS 1 PKT PDR PO SCH ×2 (08:38→20:55)
[2017-04-03] MEDS: PIOGLITAZONE 15 MG TAB PO SCH (08:38)
[2017-04-03] MEDS: SILDENAFIL 20 MG TAB PO SCH ×2 (08:39→21:00)
[2017-04-03] MEDS: ATORVASTATIN 20 MG TAB PO SCH (08:40)
[2017-04-03] MEDS: GABAPENTIN 100 MG CAP PO SCH ×3 (08:40→17:00)
[2017-04-03] MEDS: LACTOBACILLUS RHAMNOSUS GG 1 EACH CAP PO SCH (08:40)
[2017-04-03] MEDS: LISINOPRIL 5 MG TAB PO SCH (08:41)
[2017-04-03] MEDS: predniSONE 10 MG TAB PO SCH (08:42)
[2017-04-03] MEDS: APIXABAN 2.5 MG TAB PO SCH ×2 (08:44→20:53)
[2017-04-03] MEDS ORDERED: FUROSEMIDE 20 MG TAB PO SCH (09:00)
[2017-04-03] MEDS ORDERED: MAG SULF 2000 MG/WATER PREMIX 50 ML IV SCH (09:00)
[2017-04-03] MEDS: HYDROcodone/APAP 10/325 MG 1 TAB TAB PO PRN ×2 (09:12→22:38)
[2017-04-03] MEDS: ONDANSETRON 4 MG/2 ML VIAL IM/IVP PRN (09:51)
[2017-04-03] MEDS ORDERED: FUROSEMIDE 20 MG/2 ML VIAL IVP SCH (10:00)
--- NOTE | 2017-04-03 10:10 | NUR ---
PATIENT ASLEEP IN BED. NO S/S OF DISTRESS NOTED
[2017-04-03] MEDS: INSULIN LISPRO SLIDING SCALE 100 UNITS/ML VIAL SUBQ PRN ×2 (12:10→17:53)
--- NOTE | 2017-04-03 19:35 | NUR ---
PATIENT REPORT GIVEN AT BEDSIDE. PATIENT ENDORSED IN STABLE CONDITION
--- NOTE | 2017-04-03 19:36 | NUR ---
RECEIVED REPORT FROM DAY NURSE, PT IS AAOX4, PT IS ON 2L OF O2. PT HAS SALINE LOCK TO R FA 20 G AND PERIPHERAL IV TO R FA 24 G, PATENT AND INTACT. PTS SKIN IS INTACT. RESPIRATIONS ARE EVEN AND UNLABORED. BOWEL SOUNDS PRESENT IN ALL FOUR QUADRANTS. INITIAL PLAN OF CARE DISCUSSED WITH PT. PT VERBALIZED UNDERSTANDING. ALL SAFETY PRECAUTIONS MET, CALL LIGHT WITHIN REACH, WILL CONTINUE TO MONITOR.
[2017-04-03] MEDS: AMITRIPTYLINE 25 MG TAB PO SCH (20:54)
[2017-04-03] MEDS: POTASSIUM CHLORIDE 20% 40 MEQ/15 ML UDC PO SCH (20:54)
[2017-04-03] MEDS: SENNA 8.6 MG TAB PO SCH (21:00)
--- NOTE | 2017-04-03 21:00 | NUR ---
DUE MEDICATIONS GIVEN, PT TOLERATED WELL. PT REFUSED SENNA BECAUSE SHE SAYS SHE HAS BEEN HAVING BMS AND DOES NEED IT. PT REFUSED SIDENAFIL BECAUSE SHE BELIEVES HER B/P IS TOO LOW ALREADY. I EDUCATED PT ON RISKS AND BENEFITS AND MEDICATIONS PURPOSE. PT VERBALIZED UNDERSTANDING BUT REFUSES.
--- NOTE | 2017-04-03 22:34 | NUR ---
DR. OBRIEN IN TO SEE PT, PT IS REQUESTING HIGHER DOSE OF PAIN MEDICATION. DR. OBRIEN SAID OK TO GIVE NORCO FOR NOW, AFTER TORODOL 2 HOUR AGO. PT EDUCATED THAT HER BP HAS BEEN RUNNING LOW, PT VERBALIZED UNDERSTANDING.
--- NOTE | 2017-04-03 22:40 | NUR ---
PT GIVEN NORCO, PT HAS HEATED TOWEL IN PLACE, PT EDUCATED ON AMBULATING TO HELP WITH THE PAIN. WILL CONTINUE TO MONITOR.
--- NOTE | 2017-04-03 23:45 | NUR ---
PT RESTING COMFORTABLY IN BED, NO S/S OF DISTRESS NOTED. ALL SAFETY PRECAUTIONS MET, CALL LIGHT WITHIN REACH, WILL CONTINUE TO MONITOR
[2017-04-04] VITALS: BP 105/57
--- NOTE | 2017-04-04 00:05 | NUR ---
PT READJUSTED IN BED FOR COMFORT, PT ON CELL PHONE. NO S/S OF DISTRESS NOTED, CALL LIGHT WITHIN REACH, WILL CONTINUE TO MONITOR.
[2017-04-04 04:00] VITALS: BP 118/84
--- NOTE | 2017-04-04 04:10 | NUR ---
PT REPOSITIONED IN BED FOR COMFORT, CALL LIGHT WITHIN REACH.
[2017-04-04] MEDS: KETOROLAC 30 MG/ML VIAL IVP PRN ×2 (04:26→10:36)
--- NOTE | 2017-04-04 04:26 | NUR ---
PT IN 9/10 PAIN IN ABDOMEN. PT MEDICATED PER MD ORDERS. ALL SAFETY PRECAUTIONS MET, CALL LIGHT WITHIN REACH, WILL CONTINUE TO MONITOR.
[2017-04-04] MEDS: BLOOD GLUCOSE MONITORING 1 DEV DEV FS SCH ×2 (06:18→10:55)
[2017-04-04 06:19] LABS: BASOPHILS # (AUTO) 0.1 K/uL (0.00-0.22); BASOPHILS % (AUTO) 2.7 % (0.0-2.0); EOSINOPHILS # (AUTO) 0.1 K/uL (0-0.4); HEMATOCRIT 33.8 % (36-48); HEMOGLOBIN 10.5 g/dL (12.0-16.0); LYMPHOCYTES # (AUTO) 1.7 K/uL (2.5-16.5); LYMPHOCYTES % (AUTO) 35.2 % (20.5-51.1); MEAN CORPUSCULAR HEMOGLOBIN 26 pg (27-31); MEAN CORPUSCULAR HGB CONC 31 g/dL (33-37); MEAN CORPUSCULAR VOLUME 82 fL (80-94); MONOCYTES # (AUTO) 0.5 K/uL (0.8-1.0); MONOCYTES % (AUTO) 10.9 % (1.7-9.3); NEUTROPHILS # (AUTO) 2.4 K/uL (1.8-7.7); NEUTROPHILS % (AUTO) 48.2 % (42.2-75.2); PLATELET COUNT (AUTO) 208 K/uL (140-450); RED BLOOD CELL COUNT(AUTO) 4.11 MIL/uL (4.20-5.40); RED CELL DISTRIBUTION WIDTH 14.4 % (11.6-13.7); WHITE BLOOD COUNT (AUTO) 4.8 K/uL (4.8-10.8)
[2017-04-04 06:37] LABS: MAGNESIUM 1.6 mg/dL (1.8-2.4); PHOSPHORUS 3.6 mg/dL (2.5-4.9)
[2017-04-04 06:40] LABS: ANION GAP 11.3 (8-16); CARBON DIOXIDE 26.5 mmol/L (21-32); CREATININE 0.7 mg/dL (0.6-1.3); POTASSIUM 3.8 mmol/L (3.5-5.1)
--- NOTE | 2017-04-04 07:42 | NUR ---
ENDORSED PLAN OF CARE TO AM NURSE AT THE BEDSIDE, PT IN STABLE CONDITION
--- NOTE | 2017-04-04 07:43 | NUR ---
PT AWAKE AND ALERT, NO SIGNS OF ACUTE DISTRESS. RECEIVED BEDSIDE REPORT FROM OFFSET PRINTER NURSE. BOWEL SOUNDS ACTIVE IN ALL 4 QUADRANTS. CONTINENT TO BOWEL AND BLADDER. ON OXYGEN 2L NC. SKIN INTACT. BEDREST, AMBULATORY WITH BRP, USES BEDPAN. IV PATENT AND ASYMPTOMATIC. RE-ORIENTED PATIENT TO HOSPITAL AND TO UNIT, PT VERBALIZED UNDERSTANDING. PATIENT DENIES PAIN. BED IN LOW POSITION WITH BILATERAL HALF SIDE RAILS UP, CALL LIGHT WITHIN REACH. WILL CONTINUE TO MONITOR.
[2017-04-04 08:00] VITALS: BP 96/68
[2017-04-04] MEDS: LEVOFLOXACIN 750 MG/D5W PREMIX 150 ML IV SCH (08:54)
[2017-04-04] MEDS: POTASSIUM CHLORIDE 20% 40 MEQ/15 ML UDC PO SCH (08:54)
[2017-04-04] MEDS: predniSONE 10 MG TAB PO SCH (08:55)
[2017-04-04] MEDS: GABAPENTIN 100 MG CAP PO SCH ×2 (08:55→12:02)
[2017-04-04] MEDS: ATORVASTATIN 20 MG TAB PO SCH (08:55)
[2017-04-04] MEDS: SODIUM PHOS / POTASSIUM PHOS 1 PKT PDR PO SCH (08:55)
[2017-04-04] MEDS: SENNA 8.6 MG TAB PO SCH ×2 (08:55→09:00)
[2017-04-04] MEDS: LACTOBACILLUS RHAMNOSUS GG 1 EACH CAP PO SCH (08:55)
[2017-04-04] MEDS: APIXABAN 2.5 MG TAB PO SCH (08:56)
[2017-04-04] MEDS: SILDENAFIL 20 MG TAB PO SCH (09:00)
[2017-04-04] MEDS: LISINOPRIL 5 MG TAB PO SCH (09:00)
--- NOTE | 2017-04-04 09:07 | NUR ---
PATIENT BLOOD PRESSURE 96/68, PULSE 96, HELD BLOOD PRESSURE MEDICATIONS. WILL CONTINUE TO MONITOR.
--- NOTE | 2017-04-04 09:51 | NUR ---
INFORMED DR SAGASTUME OF PATIENT MAGNESIUM 1.6, NO NEW ORDERS RECEIVED AT THIS TIME.
--- NOTE | 2017-04-04 10:05 | NUR ---
PT COMPLAINING OF PAIN IN ABDOMEN 02/19. WILL ADMINISTER PRN PAIN MEDICATION AT 1026 ORDERED. INFORMED PATIENT, PATIENT VERBALIZED UNDERSTANDING.
[2017-04-04] MEDS ORDERED: MAGNESIUM OXIDE 400 MG TAB PO SCH (10:15)
--- NOTE | 2017-04-04 10:19 | NUR ---
RECEIVED NEW ORDERS FOR PO MAGNESIUM AND TO AMBULATE AROUND THE HALLWAY FROM DR SAGASTUME, NOTED, WILL CARRY OUT.
--- NOTE | 2017-04-04 11:00 | NUR ---
INFORMED PATIENT OF DR SAGASTUME ENCOURAGING AMBULATION AROUND HALLWAY. PT VERBALIZED UNDERSTANDING. STATED THAT SHE WILL TRY LATER TODAY.
--- NOTE | 2017-04-04 11:17 | NUR ---
04/04/17 RD FOLLOW UP COMPLETED REFER TO NUTRITION PROGRESS NOTE UNDER CARE ACTIVITY FOR ESTIMATED NEEDS. RD RECOMMENDATIONS: 1. CONTINUE CLEAR LIQUID DIET, ADVANCE TOLERATED TO LOW FAT DIET 2. RD TO FOLLOW UP WITHIN 2-3 DAYS; HIGH RISK DANIELLE WAGNER, RD
[2017-04-04 12:00] VITALS: BP 105/73
--- NOTE | 2017-04-04 12:02 | NUR ---
PT REFUSED MED, STATED THAT SHE DID NOT WANT TO TAKE IT AT THIS TIME. RISKS AND BENEFITS EXPLAINED, PT VERBALIZED UNDERSTANDING.
[2017-04-04] MEDS: INSULIN LISPRO SLIDING SCALE 100 UNITS/ML VIAL SUBQ PRN (12:13)
[2017-04-04] MEDS ORDERED: LEVO750T2 PO (12:57)
[2017-04-04] MEDS ORDERED: LACT1CAP65 PO (13:00)
[2017-04-04] MEDS ORDERED: METF1000 PO (13:07)
--- NOTE | 2017-04-04 13:09 | NUR ---
RECEIVED ORDER FOR DISCHARGE FROM DR SAGASTUME, NOTED, WILL CARRY OUT.
[2017-04-04] MEDS ORDERED: POTA25TE38 PO (14:51)
--- NOTE | 2017-04-04 15:00 | NUR ---
PT REFUSED TO WALK AROUND UNIT DR SAGASTUME INSTRUCTED.
--- NOTE | 2017-04-04 15:05 | NUR ---
PT SITTING UPRIGHT IN BED, DANGLING FEET. PT TOLERATING WELL. WILL CONTINUE TO MONITOR.
--- NOTE | 2017-04-04 15:23 | NUR ---
EDUCATED PATIENT ON DISCHARGE INSTRUCTIONS INCLUDING NEW PRESCRIPTIONS, CONTINUED PRESCRIPTIONS, RESUMING LIGHT ACTIVITY, FOLLOW UP WITH PCP, MONITORING BLOOD SUGAR AND ADMINISTRATION OF INSULIN, SIGNS AND SYMPTOMS OF INFECTION AND WORSENING CONDITION AND EMERGENCY MANAGEMENT, PT VERBALIZED UNDERSTANDING. DISCHARGE PAPERWORK SIGNED, IV'S REMOVED AND WRIST BANDS CUT OFF. WHEELED PATIENT OUT TO FRONT LOBBY, TO GO HOME VIA PRIVATE AUTO WITH FAMILY, PT TOLERATED WELL.
== END 2017-04-04 15:23 | disposition home or self-care (01) | DRG 720 ==
LOC: MED 18:35 → MTU 22:03
PROVIDERS: ADMIT Student in an Organized Health Care Education/Training Program; ATTEND Student in an Organized Health Care Education/Training Program
DX: A41.9 Sepsis, unspecified organism (principal); N17.0 Acute kidney failure with tubular necrosis; E44.0 Moderate protein-calorie malnutrition; K85.90 Acute pancreatitis without necrosis or infection, unspecified; D68.59 Other primary thrombophilia; I50.9 Heart failure, unspecified; I13.0 Hypertensive heart and chronic kidney disease with heart failure and stage 1 through stage 4 chronic kidney disease, or unspecified chronic kidney disease; E11.40 Type 2 diabetes mellitus with diabetic neuropathy, unspecified; E11.22 Type 2 diabetes mellitus with diabetic chronic kidney disease; E11.65 Type 2 diabetes mellitus with hyperglycemia; E83.39 Other disorders of phosphorus metabolism; I25.10 Atherosclerotic heart disease of native coronary artery without angina pectoris; F11.20 Opioid dependence, uncomplicated; E78.5 Hyperlipidemia, unspecified; M06.9 Rheumatoid arthritis, unspecified; E66.9 Obesity, unspecified; E83.42 Hypomagnesemia; R65.20 Severe sepsis without septic shock; F41.9 Anxiety disorder, unspecified; E87.6 Hypokalemia; G89.4 Chronic pain syndrome; F32.9 Major depressive disorder, single episode, unspecified; J45.909 Unspecified asthma, uncomplicated; N18.9 Chronic kidney disease, unspecified; M32.9 Systemic lupus erythematosus, unspecified; I27.2 Other secondary pulmonary hypertension; Z86.711 Personal history of pulmonary embolism; Z68.35 Body mass index [BMI] 35.0-35.9, adult; Z83.3 Family history of diabetes mellitus; Z88.1 Allergy status to other antibiotic agents; Z82.49 Family history of ischemic heart disease and other diseases of the circulatory system; Z83.49 Family history of other endocrine, nutritional and metabolic diseases; Z84.1 Family history of disorders of kidney and ureter; Z82.3 Family history of stroke; Z79.4 Long term (current) use of insulin
CPT/HCPCS: 36415; 36600; 71010; 80048; 80053; 81001; 81025; 82150; 82803; 82948; 83036; 83605; 83615; 83690; 83735; 83880; 84100; 84436; 84439; 84443; 84479; 84703; 85025; 85610; 85730; 87040; 87081; 87086; 93005; 94640; 96365; 96375; 96376; 99291; J1170; J1200; J1815; J1885; J1940; J1956; J2270; J2405; J3475; J3480; J3490; J7030; J7060; J7512; J7620; Q0092; Q9967

== ENCOUNTER 2017-06-02 11:31 | Inpatient (IN) | payer OTHER ==
[~2017-06-02] VITALS: Ht 175.3 cm; Wt 113.4 kg
[~2017-06-02 11:31] MED LIST changes: +LACT1CAP65 PO; +LEVO750T2 PO; +METF1000 PO; +POTA25TE38 PO; -SULF-58 PO; -TOR30I IVP
[2017-06-02 11:40] VITALS: BP 126/76
--- NOTE | 2017-06-02 11:41 | NUR ---
Patient taken to bed 08 via gurney per EMS.
--- NOTE | 2017-06-02 11:50 | NUR ---
31 YO FEMALE BIB EMS FROM HOME FOR ABDOMINAL PAIN AND VOMITING, AWAKE AND ALERT, SKINS WARM AND DRY DOES NOT APPEAR IN ACUTE DISTRESS.DENIES ANY DIARRHEA;SKIN IS PINK/WARM/DRY; AAOX4 WITH EVEN AND STEADY GAIT; LUNGS CLEAR BL; HR EVEN AND REGULAR; PT DENIES ANY FEVER, CP, SOB, OR COUGH AT THIS TIME; PATIENT STATES PAIN OF 7/10 AT THIS TIME; VSS; PATIENT POSITIONED FOR COMFORT; HOB ELEVATED; BEDRAILS UP X2; BED DOWN. ER MD MADE AWARE OF PT STATUS.
[2017-06-02] MEDS ORDERED: NACL 0.9% 500 ML IV ONE (11:54)
[2017-06-02] MEDS ORDERED: ONDANSETRON 4 MG/2 ML VIAL IVP ONE (11:55)
[2017-06-02] MEDS ORDERED: KETOROLAC 30 MG/ML VIAL IVP ONE (11:55)
[2017-06-02] MEDS ORDERED: MORPHINE SULFATE 2 MG/ML SYR IVP ONE (12:30)
[2017-06-02 12:37] LABS: ALBUMIN 2.5 g/dL (3.4-5.0); ANION GAP 14.8 (8-16); CREATININE 0.6 mg/dL (0.6-1.3); TOTAL BILIRUBIN 0.6 mg/dL (0.0-1.0)
[2017-06-02 12:57] LABS: POTASSIUM 2.8 mmol/L (3.5-5.1)
[2017-06-02] MEDS ORDERED: POTASSIUM CHL 40 MEQ/ D5-1/2NS 1,000 ML IV ONE (13:00)
[2017-06-02 13:10] LABS: BASOPHILS # (AUTO) 0.1 K/uL (0.00-0.22); BASOPHILS % (AUTO) 1.9 % (0.0-2.0); EOSINOPHILS % (AUTO) 0.4 % (0.0-4.0); HEMOGLOBIN 11.1 g/dL (12.0-16.0); LYMPHOCYTES # (AUTO) 1.2 K/uL (2.5-16.5); LYMPHOCYTES % (AUTO) 16.3 % (20.5-51.1); MEAN CORPUSCULAR HEMOGLOBIN 26 pg (27-31); MEAN CORPUSCULAR HGB CONC 30 g/dL (33-37); MEAN CORPUSCULAR VOLUME 85 fL (80-94); MONOCYTES # (AUTO) 0.2 K/uL (0.8-1.0); MONOCYTES % (AUTO) 2.1 % (1.7-9.3); NEUTROPHILS # (AUTO) 5.8 K/uL (1.8-7.7); NEUTROPHILS % (AUTO) 79.3 % (42.2-75.2); PLATELET COUNT (AUTO) 219 K/uL (140-450); RED BLOOD CELL COUNT(AUTO) 4.34 MIL/uL (4.20-5.40); RED CELL DISTRIBUTION WIDTH 18.3 % (11.6-13.7); WHITE BLOOD COUNT (AUTO) 7.3 K/uL (4.8-10.8)
--- NOTE | 2017-06-02 13:35 | NUR ---
WENT TO US ACCOMPANIED BY KARIN.
--- NOTE | 2017-06-02 13:46 | NUR ---
[facility] OF [facility]UR[facility]) CALLED REGARDING PT;
[2017-06-02] MEDS ORDERED: ACETAMINOPHEN 325 MG TAB PO PRN (14:10)
[2017-06-02] MEDS ORDERED: ONDANSETRON 4 MG/2 ML VIAL IVP PRN (14:10)
[2017-06-02] MEDS ORDERED: HYDROcodone/APAP 7.5/325 MG 1 TAB PO PRN (14:10)
[2017-06-02] MEDS ORDERED: fentaNYL 0.05 MG/ML VIAL IVP ONE (14:15)
--- NOTE | 2017-06-02 14:49 | NUR ---
Patient will be admitted to care of DR MERCEDES. Admited to TELE. Will go to room 123 A. Belongings list completed. Report to JUAN PABLO LOJA.
[2017-06-02] MEDS ORDERED: INSULIN LISPRO SLIDING SCALE 100 UNITS/ML VIAL SUBQ PRN (15:10)
[2017-06-02] MEDS ORDERED: ALBUTEROL SULFATE/IPRATROPIU 3 ML SOL IH PRN (15:10)
[2017-06-02] MEDS ORDERED: DEXTROSE 50% 50 ML SYR IVP PRN (15:10)
[2017-06-02 15:29] LABS: PROTHROMBIN TIME 11.6 secs (10.8-13.4)
--- NOTE | 2017-06-02 15:30 | NUR ---
PATIENT WAS TRANSFERRED FROM ER. PATIENT AMBULATED FROM [facility] TO BED WITHOUT ASSISTANCE. DIAGNOSED WITH PANCREATITIS. PATIENT A/O X4, PUPILS EQUAL REACTIVE TO LIGHT. RESPIRATION EVEN, LUNGS SOUND CLEAR THROUGHOUT. CARDIAC WITH S1/S2 PRESENT. BOWEL SOUNDS ACTIVE 4 QUADRANTS. SKIN INTACT, DRY AND WARM TO THE TOUCH. IV 24G ON LEFT WRIST, PATENT AND INTACT. CALL LIGHT WITHIN REACH. MRSA WAS SWABBED. PATIENT COMPLAINED OF PAIN ON THE ABDOMEN /. WILL MEDICATE PER ORDER. VS WAS TAKEN. WILL CONTINUE TO MONITOR.
[2017-06-02 15:32] VITALS: BP 105/66
[2017-06-02 15:48] LABS: CHOL/HDL RATIO 3.8 (1-4.5); FREE T4 (FREE THYROXINE) 1.2 ng/dL (0.76-1.46); MAGNESIUM 1.7 mg/dL (1.8-2.4); PHOSPHORUS 3.5 mg/dL (2.5-4.9); THYROID STIMULATING HORMONE 0.58 uIU/mL (0.34-3.74)
[2017-06-02] MEDS: BLOOD GLUCOSE MONITORING 1 DEV DEV FS SCH ×2 (16:30→20:56)
--- NOTE | 2017-06-02 17:00 | NUR ---
PATIENT REFUSED SCD. PATIENT EDUCATION REGARDING THE SCD WAS GIVEN. WILL CONTINUE TO MONITOR
--- NOTE | 2017-06-02 18:15 | NUR ---
PATIENT IS AWAKE, EATING DINNER. RESPIRATION EVEN. NO DISTRESS NOTED. IV STILL INFUSING OK. CALL LIGHT WITHIN REACH. WILL CONTINUE TO MONITOR
[2017-06-02] MEDS ORDERED: LORazepam 0.5 MG TAB PO PRN (18:40)
[2017-06-02] MEDS ORDERED: MAGNESIUM OXIDE 400 MG TAB PO SCH (18:40)
--- NOTE | 2017-06-02 18:42 | NUR ---
DR. RICE WAS MADE AWARE OF MAG LEVEL 1.7
[2017-06-02] MEDS: HYDROmorphone 1 MG/ML AMP IVP PRN ×2 (19:03→23:22)
--- NOTE | 2017-06-02 19:27 | NUR ---
ENDORSEMENT GIVEN TO THE DATABASE ANALYST NURSE. PATIENT IS AWAKE, NO DISTRESS NOTED AT THIS TIME
--- NOTE | 2017-06-02 19:35 | NUR ---
RECEIVED REPORT FROM THE DAY RN. PATIENT AWAKE ALERT ORIENTED X4, NO S/S OF DISTRESS NOTED, RESPIRATION EVEN AND UNLABORED, IV PATIENT AND INTACT, INFUSING D5-1/2NS-KCL 40MEQ AT 100ML/HR. PLAN OF CARE DISCUSSED, PATIENT VERBALIZED UNDERSTANDING. CALL LIGHT WITHIN REACH, SAFETY MEASURE ENSURED, WILL CONTINUE TO MONITOR.
[2017-06-02 20:00] VITALS: BP 107/61
[2017-06-02] MEDS: ALBUTEROL SULFATE/IPRATROPIU 3 ML SOL IH SCH (20:02)
[2017-06-02 20:30] LABS: ANION GAP 7.8 (8-16); CARBON DIOXIDE 30.1 mmol/L (21-32); CREATININE 0.6 mg/dL (0.6-1.3)
[2017-06-02 20:40] LABS: POTASSIUM 2.9 mmol/L (3.5-5.1)
[2017-06-02] MEDS: APIXABAN 2.5 MG TAB PO SCH (21:00)
[2017-06-02] MEDS: DOCUSATE SODIUM 100 MG GELCAP PO SCH (21:29)
[2017-06-02] MEDS: ZOLPIDEM 5 MG TAB PO SCH (21:30)
[2017-06-02] MEDS: AMITRIPTYLINE 25 MG TAB PO SCH (21:30)
--- NOTE | 2017-06-02 21:58 | NUR ---
ELIQUIS NOT AVAILABLE AT THIS TIME. CHARGE NURSE AND BRAND MANAGER ARE AWARE.
[2017-06-02] MEDS: NACL 0.9% 1,000 ML IV SCH (23:00)
--- NOTE | 2017-06-02 23:30 | NUR ---
PATIENT STATED ABDOMINAL PAIN 02/19, BP 103/76, HR 71, PATIENT STATED," MY BLOOD PRESSURE IS NORMAL LIKE THAT." DILAUDID 0.5MG ADMINISTERED ORDERED. CALL LIGHT WITHIN REACH, SAFETY MEASURE ENSURED, WILL CONTINUE TO MONITOR.
[2017-06-03] VITALS: BP 103/76
--- NOTE | 2017-06-03 00:51 | NUR ---
PATIENT IS SLEEPING, BUT EASY TO AROUSE. NO S/S OF DISTRESS NOTED, RESPIRATION EVEN AND UNLABORED, CALL LIGHT WITHIN REACH, SAFETY MEASURE ENSURED, WILL CONTINUE TO MONITOR.
[2017-06-03] MEDS ORDERED: POTASSIUM CHLORIDE 10 MEQ TABER PO SCH (01:20)
[2017-06-03] MEDS ORDERED: POTASSIUM CHL 40 MEQ/ D5-1/2NS 1,000 ML IV SCH (01:20)
[2017-06-03] MEDS ORDERED: POTASSIUM CHLORIDE 20% 40 MEQ/15 ML UDC PO SCH (03:00)
--- NOTE | 2017-06-03 03:08 | NUR ---
PATIENT REFUSED K-DUR, STATED," THE PILLS ARE TOO BIG." MADE DR. ESTEBAN AWARE. SAID," I WILL ORDER LIQUID FORM."
[2017-06-03] MEDS ORDERED: POTASSIUM CHL 20 MEQ/D5-1/2NS 0 ML IV ONE (03:30)
[2017-06-03] MEDS ORDERED: POTASSIUM CHL 40 MEQ/ D5-1/2NS 1,000 ML IV ONE (03:32)
--- NOTE | 2017-06-03 03:58 | NUR ---
POTASSIUM 2.9, DR. ESTEBAN ORDERED D5-1/2NS-KCL 40MEQ, IVF, 100ML/HR AND KCL 20% 40MEQ/15ML, PO. DR. ESTEBAN STATED," PATIENT'S POTASSIUM IS VERY LOW, SHE NEEDS THE D5-1/2NS-KCL 40MEQ START NOW." INFORMED THE BLACKJACK SUPERVISOR, ORDER NOTED AND CARRIED OUT.
[2017-06-03 04:00] VITALS: BP 102/62
[2017-06-03] MEDS: HYDROmorphone 1 MG/ML AMP IVP PRN ×4 (04:08→21:22)
--- NOTE | 2017-06-03 04:10 | NUR ---
PATIENT WAS SLEEPING, EASY TO AROUSE, VITAL SIGNS TAKEN, STABLE, PATIENT STATED ABDOMINAL PAIN 9/10. DILAUDID ADMINISTERED ORDERED. WILL CONTINUE TO MONITOR.
[2017-06-03] MEDS: NACL 0.9% 1,000 ML IV SCH ×3 (05:40→21:20)
[2017-06-03] MEDS: BLOOD GLUCOSE MONITORING 1 DEV DEV FS SCH ×4 (06:32→21:00)
[2017-06-03 06:36] LABS: HEMOGLOBIN 10.4 g/dL (12.0-16.0)
[2017-06-03 06:38] LABS: MEAN CORPUSCULAR HEMOGLOBIN 27 pg (27-31); MEAN CORPUSCULAR HGB CONC 32 g/dL (33-37); MEAN CORPUSCULAR VOLUME 86 fL (80-94); PLATELET COUNT (AUTO) 204 K/uL (140-450); RED BLOOD CELL COUNT(AUTO) 3.82 MIL/uL (4.20-5.40); RED CELL DISTRIBUTION WIDTH 18.5 % (11.6-13.7); WHITE BLOOD COUNT (AUTO) 4.8 K/uL (4.8-10.8)
--- NOTE | 2017-06-03 06:43 | NUR ---
PATIENT WAS SLEEPING, EASY TO AROUSE, NO S/S OF DISTRESS NOTED, RESPIRATION EVEN AND UNLABORED. CALL LIGHT WITHIN REACH, SAFETY MEASURE ENSURED, WILL CONTINUE TO MONITOR.
[2017-06-03 06:45] LABS: CARBON DIOXIDE 29.6 mmol/L (21-32); CREATININE 0.6 mg/dL (0.6-1.3); POTASSIUM 3.6 mmol/L (3.5-5.1)
[2017-06-03 06:56] LABS: MAGNESIUM 1.7 mg/dL (1.8-2.4); PHOSPHORUS 3.7 mg/dL (2.5-4.9)
[2017-06-03 06:57] LABS: LYMPHOCYTES % (MANUAL) 28 % (20-46)
[2017-06-03 06:58] LABS: MONOCYTES % (MANUAL) 2 % (5-12)
--- NOTE | 2017-06-03 07:12 | NUR ---
ASSUMED CONTINUITY OF CARE. NO SIGNS AND SYMPTOMS OF ACUTE DISTRESS NOTED. INITIAL ASSESSMENT DONE. KEEP COMFORTABLE ON BED. EXPLAINED DIAGNOSIS, PLAN OF CARE, PAIN MANAGEMENT TEACHING, USE OF CALL LIGHT WITHIN REACH. FALL PRECAUTION APPLIED. CALL LIGHT WITHIN REACH.
--- NOTE | 2017-06-03 07:12 | NUR ---
ENDORSED PLAN OF CARE TO DAY GAYLE MORROW, PATIENT RESTING IN BED, IN STABLE CONDITION.
[2017-06-03] MEDS: ALBUTEROL SULFATE/IPRATROPIU 3 ML SOL IH SCH ×3 (07:15→19:26)
[2017-06-03 08:00] VITALS: BP 111/78
--- NOTE | 2017-06-03 08:00 | NUR ---
Patient's Plan of Care was discussed and reviewed with AIR BRUSH OPERATOR: ODALYS MARSHALL
--- NOTE | 2017-06-03 08:34 | NUR ---
PATIENT HAS BEEN SCREENED AND CATEGORIZED HIGH NUTRITION RISK. PATIENT WILL BE SEEN WITHIN 1-2 DAYS OF ADMISSION. 06/03/17-06/04/[address]
[2017-06-03] MEDS ORDERED: MAGNESIUM OXIDE 400 MG TAB PO SCH (08:45)
--- NOTE | 2017-06-03 08:57 | NUR ---
CM NOTE INITIAL REVIEW FAXED TO EN [phone] JAS PH# [phone] EXT [phone]
[2017-06-03] MEDS: LISINOPRIL 5 MG TAB PO SCH (09:20)
[2017-06-03] MEDS: PIOGLITAZONE 30 MG TAB PO SCH (09:21)
[2017-06-03] MEDS: predniSONE 10 MG TAB PO SCH (09:21)
[2017-06-03] MEDS: GABAPENTIN 100 MG CAP PO SCH ×3 (09:21→17:12)
[2017-06-03] MEDS: DOCUSATE SODIUM 100 MG GELCAP PO SCH ×2 (09:21→21:21)
[2017-06-03] MEDS: METHOTREXATE 2.5 MG TAB PO SCH (09:22)
[2017-06-03] MEDS: APIXABAN 2.5 MG TAB PO SCH ×2 (09:24→21:00)
--- NOTE | 2017-06-03 10:11 | NUR ---
IV ACCESS ON LEFT WRIST GAUGE #24 LEAKED, AND REMOVED. INSERTED IV ACCESS ON LEFT HAND WITH GAUGE #24 WITH ASSISTANCE FROM CHARGE NURSE CYNTHIA CONN. TOLERATED WELL.
[2017-06-03 12:00] VITALS: BP 101/64
[2017-06-03] MEDS: AMYLASE/LIPASE/PROTEASE 1 CAPDR PO SCH ×2 (12:14→17:11)
--- NOTE | 2017-06-03 14:45 | NUR ---
IV ACCESS ON LEFT WRIST GAUGE #24 GOT INFILTRATED, REMOVED AND APPLIED WARM TOWEL ON AFFECTED IV SITE. INSERTED NEW IV ACCESS ON RIGHT FOREARM WITH GAUGE #24. TOLERATED WELL.
[2017-06-03 16:00] VITALS: BP 100/65
--- NOTE | 2017-06-03 19:20 | NUR ---
BEDSIDE REPORT GIVEN TO SAM CONN. IVF INFUSING WELL. IN STABLE CONDITION.
--- NOTE | 2017-06-03 19:22 | NUR ---
RECEIVED HANDOFF REPORT FROM AM RN. PATIENT A&OX4. PATIENT DENIES PAIN. IV SITE PATENT AND INTACT. PATIENT CURRENTLY GETTING BREATHING TREATMENT. NO SIGNS OR SYMPTOMS OF ACUTE DISTRESS NOTED. CALL LIGHT WITHIN REACH. WILL CONTINUE TO MONITOR.
[2017-06-03 20:00] VITALS: BP 101/65
[2017-06-03] MEDS: ZOLPIDEM 5 MG TAB PO SCH (21:20)
[2017-06-03] MEDS: AMITRIPTYLINE 25 MG TAB PO SCH (21:21)
--- NOTE | 2017-06-03 23:17 | NUR ---
PATIENT RESTING IN BED PLAYING GAMES ON PHONE. PATIENT DENIES PAIN. NO SIGNS OR SYMPTOMS OF ACUTE DISTRESS NOTED. CALL LIGHT WITHIN REACH. WILL CONTINUE TO MONITOR.
[2017-06-04] MEDS: HYDROmorphone 1 MG/ML AMP IVP PRN ×5 (00:47→21:53)
[2017-06-04] MEDS: NACL 0.9% 1,000 ML IV SCH ×4 (01:40→22:10)
--- NOTE | 2017-06-04 03:22 | NUR ---
PATIENT RESTING IN BED. PATIENT DENIES PAIN. NO SIGNS OR SYMPTOMS OF ACUTE DISTRESS NOTED. CALL LIGHT WITHIN REACH. WILL CONTINUE TO MONITOR.
[2017-06-04 06:34] LABS: HEMATOCRIT 32.8 % (36-48); HEMOGLOBIN 10.1 g/dL (12.0-16.0); MEAN CORPUSCULAR HEMOGLOBIN 26 pg (27-31); MEAN CORPUSCULAR HGB CONC 31 g/dL (33-37); MEAN CORPUSCULAR VOLUME 85 fL (80-94); PLATELET COUNT (AUTO) 195 K/uL (140-450); RED BLOOD CELL COUNT(AUTO) 3.86 MIL/uL (4.20-5.40); RED CELL DISTRIBUTION WIDTH 18.8 % (11.6-13.7); WHITE BLOOD COUNT (AUTO) 5.3 K/uL (4.8-10.8)
[2017-06-04] MEDS: BLOOD GLUCOSE MONITORING 1 DEV DEV FS SCH ×4 (06:56→21:00)
[2017-06-04] MEDS: ALBUTEROL SULFATE/IPRATROPIU 3 ML SOL IH SCH ×3 (07:00→19:41)
[2017-06-04 07:22] LABS: ANION GAP 10.1 (8-16); CARBON DIOXIDE 26.7 mmol/L (21-32); CREATININE 0.5 mg/dL (0.6-1.3); POTASSIUM 3.8 mmol/L (3.5-5.1)
--- NOTE | 2017-06-04 07:27 | NUR ---
ENDORSED PLAN OF CARE TO AM RN. PATIENT IN STABLE CONDITION. NO SIGNS OR SYMPTOMS OF ACUTE DISTRESS NOTED. CALL LIGHT WITHIN REACH.
--- NOTE | 2017-06-04 07:30 | NUR ---
RECEIVED REPORT FROM INTERNET RETAILER NURSE, PT IS RESTING IN BED RECEIVING A BREATHING TREATMENT AT THIS TIME, PT IS A/OX4, AMBULATES WITH ASSIST, SKIN IS INTACT, NO S/S OF RESPIRATORY DISTRESS OR DISCOMFORT NOTED, DISCUSSED PLAN OF CARE WITH PT, PT VERBALIZED UNDERSTANDING, SAFETY/FALL PRECAUTIONS ARE IN PLACE, CALL LIGHT IS WITHIN REACH, WILL CONTINUE TO MONITOR.
[2017-06-04 07:46] LABS: MAGNESIUM 1.8 mg/dL (1.8-2.4); PHOSPHORUS 3.6 mg/dL (2.5-4.9)
[2017-06-04 07:58] LABS: EOSINOPHILS % (MANUAL) 2 % (0-4); LYMPHOCYTES % (MANUAL) 35 % (20-46); MONOCYTES % (MANUAL) 3 % (5-12)
[2017-06-04 08:00] VITALS: BP 108/70
[2017-06-04] MEDS: LISINOPRIL 5 MG TAB PO SCH (08:35)
[2017-06-04] MEDS: GABAPENTIN 100 MG CAP PO SCH ×3 (08:36→17:17)
[2017-06-04] MEDS: PIOGLITAZONE 30 MG TAB PO SCH (08:36)
[2017-06-04] MEDS: AMYLASE/LIPASE/PROTEASE 1 CAPDR PO SCH ×3 (08:36→17:17)
[2017-06-04] MEDS: DOCUSATE SODIUM 100 MG GELCAP PO SCH ×2 (08:36→21:52)
[2017-06-04] MEDS: predniSONE 10 MG TAB PO SCH (08:37)
[2017-06-04] MEDS: METHOTREXATE 2.5 MG TAB PO SCH (08:50)
[2017-06-04] MEDS: APIXABAN 2.5 MG TAB PO SCH ×2 (08:52→21:59)
--- NOTE | 2017-06-04 10:00 | NUR ---
PATIENT PLACED IN ISOLATION FOR MRSA OF NARES.
--- NOTE | 2017-06-04 14:59 | NUR ---
06/04/17 RD INITIAL ASSESSMENT COMPLETED. PLEASE REFER TO NUTRITION PROGRESS NOTES UNDER CARE ACTIVITY FOR ESTIMATED NUTRITIONAL NEEDS. RD RECOMMENDATIONS: 1- RECOMMEND CONTINUE CLEAR LIQUID DIET. 2- WHEN MEDICALLY CLEAR, ADVANCE DIET TOLERATED TO FULL LIQUID, THEN TO 60G CCHO CARDIAC. 3- F/U 3-5 DAYS; MODERATE RISK. DAINA STRATTON; LEONOR, RD
--- NOTE | 2017-06-04 15:00 | NUR ---
PT SLEEPING IN BED, CALL LIGHT WITHIN REACH.
[2017-06-04 16:00] VITALS: BP 121/80
--- NOTE | 2017-06-04 16:00 | NUR ---
PATIENT RESTING IN BED TALKING ON HER CELL PHONE, CALL LIGHT IS WITHIN REACH.
[2017-06-04] MEDS ORDERED: GABAPENTIN 100 MG CAP ONE (17:16)
--- NOTE | 2017-06-04 19:19 | NUR ---
ENDORSED PT TO RN ADVICE NURSE FOR CONTINUITY OF CARE, PT STABLE AT THIS TIME.
[2017-06-04] MEDS: ZOLPIDEM 5 MG TAB PO SCH (21:52)
[2017-06-04] MEDS: AMITRIPTYLINE 25 MG TAB PO SCH (21:52)
[2017-06-05] VITALS: BP 107/70
[2017-06-05] MEDS: HYDROmorphone 1 MG/ML AMP IVP PRN ×7 (01:48→23:26)
[2017-06-05] MEDS: NACL 0.9% 1,000 ML IV SCH ×3 (05:04→21:40)
[2017-06-05 07:21] LABS: BASOPHILS # (AUTO) 0.3 K/uL (0.00-0.22); BASOPHILS % (AUTO) 4.3 % (0.0-2.0); EOSINOPHILS # (AUTO) 0.2 K/uL (0-0.4); EOSINOPHILS % (AUTO) 2.9 % (0.0-4.0); HEMATOCRIT 31.6 % (36-48); HEMOGLOBIN 9.8 g/dL (12.0-16.0); LYMPHOCYTES # (AUTO) 1.1 K/uL (2.5-16.5); MEAN CORPUSCULAR HEMOGLOBIN 26 pg (27-31); MEAN CORPUSCULAR HGB CONC 31 g/dL (33-37); MEAN CORPUSCULAR VOLUME 85 fL (80-94); MONOCYTES # (AUTO) 0.1 K/uL (0.8-1.0); MONOCYTES % (AUTO) 1.6 % (1.7-9.3); NEUTROPHILS # (AUTO) 4.9 K/uL (1.8-7.7); NEUTROPHILS % (AUTO) 74.2 % (42.2-75.2); PLATELET COUNT (AUTO) 179 K/uL (140-450); RED BLOOD CELL COUNT(AUTO) 3.72 MIL/uL (4.20-5.40); RED CELL DISTRIBUTION WIDTH 18.8 % (11.6-13.7); WHITE BLOOD COUNT (AUTO) 6.6 K/uL (4.8-10.8)
[2017-06-05] MEDS: ALBUTEROL SULFATE/IPRATROPIU 3 ML SOL IH SCH ×3 (07:26→19:07)
[2017-06-05] MEDS: BLOOD GLUCOSE MONITORING 1 DEV DEV FS SCH ×4 (07:30→21:54)
--- NOTE | 2017-06-05 07:30 | NUR ---
RECEIVED REPORT FROM THE RN SURGICAL PCU NURSE AT BEDSIDE FOR CONTINUITY OF CARE. PT IS AWAKE AND ORIENTED. INTRODUCED MYSELF AND UPDATED THE BOARD. V/S WITHIN NORMAL RANGE. C/O PAIN. PT SKIN IS INTACT. IV ON R FA 24G NS AT NS 150ML. WILL CONTINUE TO MONITOR PT.
[2017-06-05 07:42] LABS: ANION GAP 11.3 (8-16); CARBON DIOXIDE 25.3 mmol/L (21-32); CREATININE 0.5 mg/dL (0.6-1.3); POTASSIUM 3.6 mmol/L (3.5-5.1)
[2017-06-05 07:48] LABS: MAGNESIUM 1.6 mg/dL (1.8-2.4); PHOSPHORUS 3.5 mg/dL (2.5-4.9)
[2017-06-05 08:00] VITALS: BP 131/67
[2017-06-05] MEDS: PIOGLITAZONE 30 MG TAB PO SCH (08:44)
[2017-06-05] MEDS: DOCUSATE SODIUM 100 MG GELCAP PO SCH ×2 (08:45→21:00)
[2017-06-05] MEDS: AMYLASE/LIPASE/PROTEASE 1 CAPDR PO SCH ×3 (08:45→17:11)
[2017-06-05] MEDS: LISINOPRIL 5 MG TAB PO SCH (08:45)
[2017-06-05] MEDS: predniSONE 10 MG TAB PO SCH (08:45)
[2017-06-05] MEDS: GABAPENTIN 100 MG CAP PO SCH ×3 (08:45→17:11)
[2017-06-05] MEDS: METHOTREXATE 2.5 MG TAB PO SCH (08:46)
[2017-06-05] MEDS: APIXABAN 2.5 MG TAB PO SCH ×2 (08:47→21:31)
--- NOTE | 2017-06-05 08:50 | NUR ---
ADMINISTERED MORNING MEDS AND PAIN MED. PT TOLERATED WELL. WILL CONTINUE TO MONITOR PT.
[2017-06-05] MEDS ORDERED: MAGNESIUM OXIDE 400 MG TAB PO SCH (13:39)
[2017-06-05] MEDS ORDERED: DICYCLOMINE HCL LIQUID 20 MG, ALUMINUM HYD/MAG/SIMETHICONE 30 ML, LIDOCAINE VISCOUS 2% ... PO SCH ×6 (13:39→16:02)
--- NOTE | 2017-06-05 14:08 | NUR ---
PT PLACED ON 2L NC DUE TO SPO2 88% ON ROOM AIR.
[2017-06-05] MEDS ORDERED: ALUMINUM HYD/MAG/SIMETHICONE 30 ML UDC ONE (15:36)
[2017-06-05] MEDS ORDERED: LIDOCAINE VISCOUS 2% 20 ML UDC ONE (15:36)
[2017-06-05 16:00] VITALS: BP 113/59
--- NOTE | 2017-06-05 17:13 | NUR ---
ADMINISTERED MEDS. PT TOLERATED WELL.
--- NOTE | 2017-06-05 19:25 | NUR ---
ENDORSED PT TO THE FLAT DRIER NURSE AT BEDSIDE FOR CONTINUITY OF CARE. PT IS IN STABLE CONDITION.
--- NOTE | 2017-06-05 19:26 | NUR ---
RECEIVED BEDSIDE REPORT FROM DAY SHIFT NURSE WHITNEY RN, PT STABLE NO DISTRESS NOTED, PT AAOX4, IV TO THE L WRIST 24G RUNNING NS @150 ML/HR, DRESSING CLEAN DRY AND INTACT, INFUSING WELL, SKIN INTACT, INITIAL ASSESSMENT DONE, ALL SAFETY PRECAUTION MET, WILL CONTINUE TO MONITOR.
--- NOTE | 2017-06-05 20:00 | NUR ---
PT C/O OF PAIN ON THE ABD OF 02/19, PAIN MEDICATION GIVEN, PT TOLERATED WELL, WILL CONTINUE TO MONITOR.
[2017-06-05] MEDS: ZOLPIDEM 5 MG TAB PO SCH (21:29)
[2017-06-05] MEDS: AMITRIPTYLINE 25 MG TAB PO SCH (21:29)
--- NOTE | 2017-06-05 23:26 | NUR ---
PT C/O OF PAIN ON ABD 02/19, NO DISTRESS NOTED, PAIN MEDICATION GIVEN, WILL CONTINUE TO MONITOR.
[2017-06-06] VITALS: BP 113/83
[2017-06-06] MEDS: HYDROmorphone 1 MG/ML AMP IVP PRN ×2 (02:52→06:36)
--- NOTE | 2017-06-06 02:52 | NUR ---
PT C/O OF PAIN 02/19, PAIN MEDICATION GIVEN, PT STABLE, NO DISTRESS NOTED, CALL LIGHT WITHIN REACH.
[2017-06-06] MEDS: NACL 0.9% 1,000 ML IV SCH ×2 (04:00→07:00)
[2017-06-06] MEDS: ALBUTEROL SULFATE/IPRATROPIU 3 ML SOL IH SCH ×3 (06:35→19:39)
[2017-06-06] MEDS: BLOOD GLUCOSE MONITORING 1 DEV DEV FS SCH ×3 (06:55→16:30)
--- NOTE | 2017-06-06 07:35 | NUR ---
ENDORSED PT TO DAY SHIFT NURSE JIMMIE RN, PT STABLE NO DISTRESS NOTED, CALL LIGHT WITHIN REACH.
--- NOTE | 2017-06-06 07:50 | NUR ---
REPORT RECEIVED FROM [facility] NURSE, PT IS AWAKE IN BED ALERT AND ORIENTED X4. PT IS RESPONSIVE TO VERBAL COMMAND APPROPRIATELY. NO REPORTED PAIN OR RESP DISTRESS. IVF INFUSING ORDERED. V/S STABLE.
[2017-06-06 07:57] LABS: ANION GAP 8.5 (8-16); CREATININE 0.5 mg/dL (0.6-1.3); POTASSIUM 3.5 mmol/L (3.5-5.1)
[2017-06-06 08:00] VITALS: BP 111/77
[2017-06-06 08:23] LABS: MAGNESIUM 1.6 mg/dL (1.8-2.4); PHOSPHORUS 3.6 mg/dL (2.5-4.9)
[2017-06-06 08:58] LABS: BASOPHILS # (AUTO) 0.2 K/uL (0.00-0.22); BASOPHILS % (AUTO) 4.6 % (0.0-2.0); EOSINOPHILS # (AUTO) 0.2 K/uL (0-0.4); EOSINOPHILS % (AUTO) 4.4 % (0.0-4.0); HEMATOCRIT 31.1 % (36-48); HEMOGLOBIN 9.4 g/dL (12.0-16.0); LYMPHOCYTES # (AUTO) 1.5 K/uL (2.5-16.5); LYMPHOCYTES % (AUTO) 34.4 % (20.5-51.1); MEAN CORPUSCULAR HEMOGLOBIN 26 pg (27-31); MEAN CORPUSCULAR HGB CONC 30 g/dL (33-37); MEAN CORPUSCULAR VOLUME 86 fL (80-94); MONOCYTES % (AUTO) 1.1 % (1.7-9.3); NEUTROPHILS # (AUTO) 2.5 K/uL (1.8-7.7); NEUTROPHILS % (AUTO) 55.5 % (42.2-75.2); PLATELET COUNT (AUTO) 165 K/uL (140-450); RED BLOOD CELL COUNT(AUTO) 3.62 MIL/uL (4.20-5.40); RED CELL DISTRIBUTION WIDTH 18.6 % (11.6-13.7); WHITE BLOOD COUNT (AUTO) 4.4 K/uL (4.8-10.8)
[2017-06-06] MEDS: LISINOPRIL 5 MG TAB PO SCH (09:00)
[2017-06-06] MEDS: GABAPENTIN 100 MG CAP PO SCH ×3 (09:00→17:59)
[2017-06-06] MEDS: DOCUSATE SODIUM 100 MG GELCAP PO SCH (09:00)
[2017-06-06] MEDS: AMYLASE/LIPASE/PROTEASE 1 CAPDR PO SCH ×3 (10:25→18:00)
[2017-06-06] MEDS: PIOGLITAZONE 30 MG TAB PO SCH (10:25)
[2017-06-06] MEDS: APIXABAN 2.5 MG TAB PO SCH (12:36)
[2017-06-06] MEDS ORDERED: ACET-2863 PO (12:46)
[2017-06-06] MEDS ORDERED: ONDA4TAB PO ×2 (12:46→16:22)
[2017-06-06] MEDS ORDERED: MAGNESIUM OXIDE 400 MG TAB PO SCH (13:00)
--- NOTE | 2017-06-06 13:17 | NUR ---
PT SLEEPING WITH NO SIGNS OF DISTRESS NOTED AT THIS TIME NO HHN GIVEN
[2017-06-06] MEDS ORDERED: METOCLOPRAMIDE 10 MG/2 ML INJ VIAL IVP PRN (13:30)
[2017-06-06 16:00] VITALS: BP 133/77
[2017-06-06] MEDS ORDERED: MUPIROCIN 2% OINT 22 GM TUBE TP SCH (16:00)
[2017-06-06] MEDS ORDERED: HYDROmorphone 1 MG/ML AMP IVP SCH (16:15)
[2017-06-06] MEDS ORDERED: BACTO TP (16:22)
[2017-06-06] MEDS ORDERED: CHLO118S2 TP (16:22)
[2017-06-06] MEDS ORDERED: METO-485 PO (16:22)
[2017-06-06] MEDS ORDERED: MUPI2OIN NS (16:22)
[2017-06-06] MEDS ORDERED: LIPA1CAP PO (16:22)
[2017-06-06] MEDS ORDERED: CHLORHEXADINE GLUC 2% CLOTH TP SCH (16:30)
[2017-06-06 18:57] VITALS: BP 133/77
--- NOTE | 2017-06-06 19:35 | NUR ---
RECEIVED BEDSIDE REPORT FROM DAY SHIFT NURSE JIMMIE RN, PT STABLE, NO DISTRESS NOTED, AAOX4, IV TO R WRIST 24 G INFUSING WELL. CALL LIGHT WITHIN REACH, FAMILY BY BEDSIDE.
--- NOTE | 2017-06-06 19:50 | NUR ---
DISCHARGE FORMS FILED AND PRINTED FOR PT. NOC NURSE WILL GIVE FORMS TO PT TO SIGN. PT'S FAMILY JUST ARRIVED TO PICK PT UP. THEY ARE AT THE BED SITE. BACTROBAND OINTMENT ORDERED BUT MED NOT AVAILABLE FROM PHARMACY AT THIS TIME. CHARGE NURSE INFORMED. PT REFUSED TO OINTMENT AT THIS TIME.
--- NOTE | 2017-06-06 20:25 | NUR ---
DISCHARGE INSTRUCTION GIVEN AND SIGNED, ALL BELONGING WITH PT, IV D/C CATH INTACT, WRIST BAND TAKEN OFF, EXPLAINED DISCHARGE INFORMATION AND MEDICATION. PT STATED UNDERSTANDING.
--- NOTE | 2017-06-06 20:33 | NUR ---
PT WHEELED OUT OF UNIT, PT STABLE, NO DISTRESS NOTED
[2017-06-07] MEDS ORDERED: CHLORHEXADINE GLUC 2% CLOTH TP SCH (09:00)
== END 2017-06-06 20:33 | disposition home or self-care (01) | DRG 282 ==
LOC: MED 11:31 → MTU 14:14
PROVIDERS: ADMIT Family Medicine; ATTEND Family Medicine
DX: K85.90 Acute pancreatitis without necrosis or infection, unspecified (principal); E43 Unspecified severe protein-calorie malnutrition; E11.22 Type 2 diabetes mellitus with diabetic chronic kidney disease; M32.9 Systemic lupus erythematosus, unspecified; I50.9 Heart failure, unspecified; E11.65 Type 2 diabetes mellitus with hyperglycemia; I13.0 Hypertensive heart and chronic kidney disease with heart failure and stage 1 through stage 4 chronic kidney disease, or unspecified chronic kidney disease; E87.6 Hypokalemia; E83.42 Hypomagnesemia; M06.9 Rheumatoid arthritis, unspecified; D64.9 Anemia, unspecified; J45.909 Unspecified asthma, uncomplicated; F41.9 Anxiety disorder, unspecified; F32.9 Major depressive disorder, single episode, unspecified; G47.00 Insomnia, unspecified; N18.9 Chronic kidney disease, unspecified; Z90.49 Acquired absence of other specified parts of digestive tract; Z88.1 Allergy status to other antibiotic agents; Z68.36 Body mass index [BMI] 36.0-36.9, adult; Z90.722 Acquired absence of ovaries, bilateral; Z98.891 History of uterine scar from previous surgery; Z83.3 Family history of diabetes mellitus; Z82.3 Family history of stroke; Z82.49 Family history of ischemic heart disease and other diseases of the circulatory system; Z84.1 Family history of disorders of kidney and ureter; Z83.49 Family history of other endocrine, nutritional and metabolic diseases; Z86.718 Personal history of other venous thrombosis and embolism; Z79.01 Long term (current) use of anticoagulants; Z86.711 Personal history of pulmonary embolism; Z79.84 Long term (current) use of oral hypoglycemic drugs
CPT/HCPCS: 36415; 71010; 76705; 80048; 80053; 82150; 82948; 83036; 83540; 83615; 83690; 83735; 83880; 84100; 84439; 84443; 84484; 85025; 85610; 85730; 87081; 93005; 93925; 93970; 94640; 96361; 96374; 96375; 99285; J1170; J1815; J1885; J2270; J2405; J3010; J7030; J7512; J7620; J8610; Q0092

== ENCOUNTER 2017-06-20 10:10 | Emergency (ER) | payer OTHER ==
[~2017-06-20] VITALS: Ht 175.3 cm; Wt 99.8 kg
[~2017-06-20 10:10] MED LIST changes: +BACTO TP; +CHLO118S2 TP; -LEVO750T2 PO; +LIPA1CAP PO; +METO-485 PO; +MUPI2OIN NS; +ONDA4TAB PO; -SILD20TA PO
--- NOTE | 2017-06-20 10:10 | NUR ---
Patient BIBA BLS, transferred to bed 11. RN evaluating patient at bedside.
[2017-06-20 10:16] VITALS: BP 118/74
--- NOTE | 2017-06-20 10:21 | NUR ---
PATIENT BIB EMS PRESENTS TO ED WITH c/o ulcers to mouth x 1 wk---unable to eat or drink without pain, worsening as per pt seen at [facility] last week ; rx magic mouth wash (mylanta,benadryl,lidocaine) pt states ineffective hx---dm, htn, lupus, rheumatoid arthritis, DVT (2016) rx---eliquis DENIES N/V/D; SKIN IS PINK/WARM/DRY; AAOX4 WITH EVEN AND STEADY GAIT; LUNGS CLEAR BL; HR EVEN AND REGULAR; PT DENIES ANY FEVER, CP, SOB, OR COUGH AT THIS TIME; PATIENT STATES PAIN OF 10/10 AT THIS TIME; VSS; PATIENT POSITIONED FOR COMFORT; HOB ELEVATED; BEDRAILS UP X2; BED DOWN. ER MD MADE AWARE OF PT STATUS.
--- NOTE | 2017-06-20 10:29 | NUR ---
DR BERMAN EVALUATING AAO PT AT BEDSIDE
--- NOTE | 2017-06-20 10:29 | NUR ---
Dr. Henry evaluating patient at bedside.
[2017-06-20] MEDS ORDERED: MORPHINE SULFATE 4 MG/ML SYR IM ONE (10:35)
--- NOTE | 2017-06-20 11:25 | NUR ---
PT IS CONTACTING [facility] FAMILY MEMBERS FOR RIDE
--- NOTE | 2017-06-20 11:51 | NUR ---
Patient discharged with v/s stable. Written and verbal after care instructions given and explained. Patient alert, oriented and verbalized understanding of instructions. Wheel Chair Assisted to lobby awaiting taxi. All questions addressed prior to discharge. ID band removed. Patient advised to follow up with PMD. Rx of PRELONE, TYLENOL given. Patient educated on indication of medication including possible reaction and side effects. Opportunity to ask questions provided and answered.
[2017-06-20 11:52] VITALS: BP 114/76
== END 2017-06-20 11:57 | disposition home or self-care (01) ==
LOC: MED 10:10
DX: B00.2 Herpesviral gingivostomatitis and pharyngotonsillitis (principal); J45.909 Unspecified asthma, uncomplicated; E11.9 Type 2 diabetes mellitus without complications; L93.0 Discoid lupus erythematosus; Z88.0 Allergy status to penicillin
CPT/HCPCS: 96372; 99283; J2270